=== PATIENT | male | born 1950 | race Caucasian/White ===

== ENCOUNTER → 2016-05-07 | Outpatient (CLI) | payer BC ==
[2016-05-07 07:57] LABS: ALT 34 U/L (21-72); AST 26 U/L (17-59); Alkaline Phosphatase 82 U/L (38-126); Anion Gap 9 mmol/L; Blood Urea Nitrogen 20 mg/dL (9-20); Carbon Dioxide 27 mmol/L (22-30); Chloride 105 mmol/L (98-107); Cholesterol 136 mg/dL (<200); Glucose 143 mg/dL (74-99); HDL Cholesterol 59 mg/dL (40-60); Non-African American GFR(MDRD) >60 (>60 ml/min/1.73 sqM); Potassium 4.5 mmol/L (3.5-5.1); Sodium 141 mmol/L (137-145); Total Bilirubin 0.5 mg/dL (0.2-1.3); Total Protein 7.1 g/dL (6.3-8.2); Triglycerides 66 mg/dL (<150)
[2016-05-07 11:00] LABS: Hemoglobin A1C 6.5 % (4.2-6.1)
== END | disposition home or self-care (01) ==
LOC: LABWHC1 07:10
PROVIDERS: ATTEND Internal Medicine Endocrinology, Diabetes & Metabolism
DX: E10.65 Type 1 diabetes mellitus with hyperglycemia (principal)
CPT/HCPCS: 36415; 80053; 80061; 82043; 83036

== ENCOUNTER → 2016-11-24 | Outpatient (CLI) | payer BC, MEDICARE ==
[2016-11-24 08:21] LABS: ALT 39 U/L (21-72); AST 27 U/L (17-59); Alkaline Phosphatase 85 U/L (38-126); Anion Gap 8 mmol/L; Blood Urea Nitrogen 15 mg/dL (9-20); Calcium 9.4 mg/dL (8.4-10.2); Carbon Dioxide 28 mmol/L (22-30); Chloride 105 mmol/L (98-107); Cholesterol 130 mg/dL (<200); Glucose 126 mg/dL (74-99); HDL Cholesterol 55 mg/dL (40-60); Non-African American GFR(MDRD) >60 (>60 ml/min/1.73 sqM); Potassium 4.6 mmol/L (3.5-5.1); Sodium 141 mmol/L (137-145); Total Bilirubin 0.4 mg/dL (0.2-1.3); Total Protein 7.3 g/dL (6.3-8.2)
[2016-11-24 11:21] LABS: Urine Creatinine 59.5 mg/dL
== END | disposition home or self-care (01) ==
LOC: LABWHC1 07:16
PROVIDERS: ATTEND Internal Medicine Endocrinology, Diabetes & Metabolism
DX: E10.65 Type 1 diabetes mellitus with hyperglycemia (principal)
CPT/HCPCS: 36415; 80053; 80061; 82043; 82570

== ENCOUNTER → 2017-06-28 | Outpatient (CLI) | payer MEDICARE ==
[2017-06-28 08:09] LABS: ALT 31 U/L (21-72); AST 30 U/L (17-59); Albumin 3.9 g/dL (3.5-5.0); Alkaline Phosphatase 84 U/L (38-126); Anion Gap 12 mmol/L; Blood Urea Nitrogen 18 mg/dL (9-20); Calcium 9.2 mg/dL (8.4-10.2); Carbon Dioxide 26 mmol/L (22-30); Chloride 105 mmol/L (98-107); Cholesterol 140 mg/dL (<200); Glucose 103 mg/dL (74-99); HDL Cholesterol 56 mg/dL (40-60); LDL Cholesterol,Calculated 72 mg/dL (0-99); Potassium 4.2 mmol/L (3.5-5.1); Sodium 143 mmol/L (137-145); Total Bilirubin 0.4 mg/dL (0.2-1.3); Total Protein 6.9 g/dL (6.3-8.2); Triglycerides 61 mg/dL (<150)
[2017-06-28 18:55] LABS: Hemoglobin A1C 6.9 % (4.0-6.0)
== END | disposition home or self-care (01) ==
LOC: LABWHC1 07:14
PROVIDERS: ATTEND Internal Medicine Endocrinology, Diabetes & Metabolism
DX: E10.65 Type 1 diabetes mellitus with hyperglycemia (principal); E78.5 Hyperlipidemia, unspecified
CPT/HCPCS: 36415; 80053; 80061; 82043; 82570; 83036; 84443

== ENCOUNTER → 2017-10-10 | Outpatient (CLI) | payer MEDICARE | END | disposition home or self-care (01) | LOC: LABWHC1 06:56 | PROVIDERS: ATTEND Internal Medicine Endocrinology, Diabetes & Metabolism | DX: E10.65 Type 1 diabetes mellitus with hyperglycemia (principal) | CPT/HCPCS: 36415; 82947; 84681 ==

== ENCOUNTER → 2018-01-26 | Outpatient (CLI) | payer MEDICARE ==
[2018-01-26 17:17] LABS: Albumin/Globulin Ratio 1.9 (1.20-2.10); Anion Gap 5.8 mmol/L (4.00-12.00); Carbon Dioxide 26.2 mmol/L (21.6-31.8); Globulin 2.1 g/dL (2.1-3.7); LDL Cholesterol,Calculated 63.6 mg/dL (0.0-131.0); Potassium 4.3 mmol/L (3.5-5.5); Total Bilirubin 0.5 mg/dL (0.3-1.2); Total Protein 6.1 g/dL (6.2-8.2); VLDL Calculation 12.4 mg/dL (5.00-40.00)
[2018-01-26 19:50] LABS: Hemoglobin A1C 7.2 % (4.0-6.0)
== END | disposition home or self-care (01) ==
LOC: LABWHC1 06:42
PROVIDERS: ATTEND Internal Medicine Endocrinology, Diabetes & Metabolism
DX: E10.65 Type 1 diabetes mellitus with hyperglycemia (principal)
CPT/HCPCS: 36415; 80053; 80061; 82043; 82570; 83036; 84443

== ENCOUNTER → 2018-09-14 | Outpatient (CLI) | payer MEDICARE ==
[2018-09-14 11:10] LABS: African American GFR (CKD) 80.6 (60.0-200.0); Albumin 4.1 g/dL (3.80-4.90); Albumin/Globulin Ratio 2.05 (1.60-3.17); Anion Gap 6.9 mmol/L (4.00-12.00); BUN/Creat Ratio 19.09 Ratio (12.00-20.00); Calcium 9.2 mg/dL (8.7-10.3); Carbon Dioxide 25.1 mmol/L (21.6-31.8); Potassium 4.4 mmol/L (3.5-5.5); Total Bilirubin 0.4 mg/dL (0.2-1.2); Total Protein 6.1 g/dL (6.2-8.2)
[2018-09-14 13:19] LABS: Hemoglobin A1C 7.3 % (4.0-6.0)
== END ==
LOC: LABWHC1 06:49
PROVIDERS: ATTEND Internal Medicine Endocrinology, Diabetes & Metabolism
DX: E10.65 Type 1 diabetes mellitus with hyperglycemia (principal)
CPT/HCPCS: 36415; 80053; 80061; 82043; 82570; 83036; 84443

== ENCOUNTER → 2019-04-10 | Outpatient (CLI) | payer MEDICARE ==
[2019-04-10 13:13] LABS: African American GFR (CKD) 80.6 (60.0-200.0); Albumin 4.1 g/dL (3.80-4.90); Albumin/Globulin Ratio 2.05 (1.60-3.17); Anion Gap 6.3 mmol/L (4.00-12.00); BUN/Creat Ratio 16.36 Ratio (12.00-20.00); Calcium 8.9 mg/dL (8.7-10.3); Carbon Dioxide 26.7 mmol/L (21.6-31.8); Chol/HDL Ratio 2.41; LDL Cholesterol,Calculated 69.8 mg/dL (0.0-131.0); Non-African American GFR(CKD) 69.6 (60.0-200.0); Potassium 4.5 mmol/L (3.5-5.5); Total Bilirubin 0.5 mg/dL (0.3-1.2); Total Protein 6.1 g/dL (6.2-8.2); VLDL Calculation 12.2 mg/dL (5.00-40.00)
[2019-04-10 14:34] LABS: Hemoglobin A1C 7.9 % (4.0-6.0)
[2019-04-10 17:12] LABS: Urine Creatinine 56.2 mg/dL
== END | disposition home or self-care (01) ==
LOC: LABWHC1 06:45
PROVIDERS: ATTEND Internal Medicine Endocrinology, Diabetes & Metabolism
DX: E10.65 Type 1 diabetes mellitus with hyperglycemia (principal)
CPT/HCPCS: 36415; 80053; 80061; 82043; 82570; 83036; 84443

== ENCOUNTER 2019-08-29 07:09 | Day surgery (SDC) | payer MEDICARE ==
[2019-08-27 11:16] VITALS: BMI 29.9
[~2019-08-29 07:09] MED LIST: SODIUM CHLORIDE 0.9% 1,000 ML IV SCH
[2019-08-29 07:39] VITALS: BP 180/84; PULSE 69; RESP 16; TEMP 98.4
[2019-08-29 07:42] LABS: Glucose,Whole Blood 226 mg/dL (75-99)
--- NOTE | 2019-08-29 10:39 | P.PCN ---
Preoperative Diagnosis: Diagnosis Recurrent presyncope Twelve-lead ECG Twelve-lead ECG shows sinus rhythm normal [place] narrow QRS normal ST segments left axis deviation Tilt table test per protocol Baseline blood pressure 160/72 mmHg Baseline heart rate 58 beats a minute Patient tilted upright at an angle of 70 per protocol his heart rate and blood pressure remained stable almost a 36 minutes. Thereafter there was a sudden drop in blood pressure without any significant change in heart rate. Patient felt faint, cold and clammy and then passed out momentarily When he was laid supine his blood pressure normalized and his mentation normalized Impression Twelve-lead ECG with left axis deviation, normal cardiac intervals Neurocardiogenic response to upright tilting
== END 2019-08-29 09:25 | disposition home or self-care (01) ==
LOC: CATHEP 07:09
PROVIDERS: ATTEND Internal Medicine Clinical Cardiac Electrophysiology
DX: R55 Syncope and collapse (principal); I95.9 Hypotension, unspecified; E11.9 Type 2 diabetes mellitus without complications; Z96.41 Presence of insulin pump (external) (internal); J44.9 Chronic obstructive pulmonary disease, unspecified; I10 Essential (primary) hypertension; I25.10 Atherosclerotic heart disease of native coronary artery without angina pectoris; M19.90 Unspecified osteoarthritis, unspecified site; E78.5 Hyperlipidemia, unspecified; E11.319 Type 2 diabetes mellitus with unspecified diabetic retinopathy without macular edema; Z95.1 Presence of aortocoronary bypass graft; Z98.890 Other specified postprocedural states; Z87.891 Personal history of nicotine dependence; Z83.3 Family history of diabetes mellitus; Z82.49 Family history of ischemic heart disease and other diseases of the circulatory system; Z79.4 Long term (current) use of insulin; Z79.51 Long term (current) use of inhaled steroids; Z79.899 Other long term (current) drug therapy
CPT/HCPCS: 93005; 93660

== ENCOUNTER → 2019-10-30 | Outpatient (CLI) | payer MEDICARE ==
[2019-10-30 15:02] LABS: African American GFR (CKD) 80.1 (60.0-200.0); Albumin 3.9 g/dL (3.80-4.90); Albumin/Globulin Ratio 1.77 (1.60-3.17); Anion Gap 8.2 mmol/L (4.00-12.00); BUN/Creat Ratio 13.64 Ratio (12.00-20.00); Carbon Dioxide 24.8 mmol/L (21.6-31.8); Chol/HDL Ratio 2.49; Globulin 2.2 g/dL (1.6-3.3); LDL Cholesterol,Calculated 62.2 mg/dL (0.0-131.0); Non-African American GFR(CKD) 69.1 (60.0-200.0); Potassium 4.1 mmol/L (3.5-5.5); Total Bilirubin 0.5 mg/dL (0.2-1.2); Total Protein 6.1 g/dL (6.2-8.2); VLDL Calculation 10.8 mg/dL (5.00-40.00)
[2019-10-30 16:03] LABS: Hemoglobin A1C 6.9 % (4.0-6.0)
[2019-10-30 19:07] LABS: Urine Creatinine 63.8 mg/dL
== END | disposition home or self-care (01) ==
LOC: LABWHC1 06:59
PROVIDERS: ATTEND Internal Medicine Endocrinology, Diabetes & Metabolism
DX: E10.65 Type 1 diabetes mellitus with hyperglycemia (principal)
CPT/HCPCS: 36415; 80053; 80061; 82043; 82570; 83036; 84443

== ENCOUNTER → 2020-02-27 | Outpatient (CLI) | payer MEDICARE ==
[2020-02-27 11:11] LABS: African American GFR (CKD) 80.1 (60.0-200.0); Albumin 4.1 g/dL (3.80-4.90); Albumin/Globulin Ratio 1.95 (1.60-3.17); Anion Gap 7.8 mmol/L (4.00-12.00); BUN/Creat Ratio 16.36 Ratio (12.00-20.00); Calcium 9.2 mg/dL (8.7-10.3); Carbon Dioxide 28.2 mmol/L (21.6-31.8); Chol/HDL Ratio 2.53; Globulin 2.1 g/dL (1.6-3.3); LDL Cholesterol,Calculated 63.2 mg/dL (0.0-131.0); Non-African American GFR(CKD) 69.1 (60.0-200.0); Potassium 4.2 mmol/L (3.5-5.5); Total Bilirubin 0.5 mg/dL (0.3-1.2); Total Protein 6.2 g/dL (6.2-8.2); VLDL Calculation 11.8 mg/dL (5.00-40.00)
[2020-02-27 14:46] LABS: Hemoglobin A1C 7.1 % (4.0-6.0)
[2020-02-27 19:15] LABS: Urine Creatinine 58.2 mg/dL
== END | disposition home or self-care (01) ==
LOC: LABWHC1 07:07
PROVIDERS: ATTEND Internal Medicine Endocrinology, Diabetes & Metabolism
DX: E10.65 Type 1 diabetes mellitus with hyperglycemia (principal)
CPT/HCPCS: 36415; 80053; 80061; 82043; 82570; 83036; 84443

== ENCOUNTER 2020-04-14 07:21 | Day surgery (SDC) | payer MEDICARE ==
[2020-04-13 08:50] VITALS: BMI 29.3
[~2020-04-14 07:21] MED LIST changes: +LACTATED RINGERS 1,000 ML IV SCH; +LIDOCAINE 1% (10MG/ML) FOR IV START INTRADERMA PRN; -SODIUM CHLORIDE 0.9% 1,000 ML IV SCH
[2020-04-14 07:58] LABS: Glucose,Whole Blood 153 mg/dL (75-99)
[2020-04-14 07:59] VITALS: TEMP 97.9
[2020-04-14] MEDS ORDERED: PROPOFOL 10 MG/ML 20 ML VIAL IV ONE (08:28)
--- NOTE | 2020-04-14 08:30 | P.GSHP ---
History of Present Illness H&P Date: 04/14/20 Chief Complaint: Change in bowel habits Patient today for colonoscopy. Describes worsening constipation. Family history of colon cancer in his mother. Personal history of colon polyps unknown type. Past Medical History Past Medical History: Coronary Artery Disease (CAD), Diabetes Mellitus, GERD/Reflux, Hyperlipidemia, Hypertension, Osteoarthritis (OA), Seizure Disorder Additional Past Medical History / Comment(s): see Dr Hoffman H&P. Dizzyness, seizure x1 30 years ago none since took dilantin for [address] TOOK HIM OFF MEDICINE. DM-INSULIN PUMP. PANCREATITIS 01-02-13 History of Any Multi-Drug Resistant Organisms: None Reported Past Surgical History: Coronary Bypass/CABG, Heart Catheterization, Joint Replacement Additional Past Surgical History / Comment(s): 02/17/14 TOTAL R KNEE ARTHROPLASTY, CABG 3 VESSEL 1998, 1996 LT CAROTID ENDARTECTOMY. LASIK EYE SX(LT), (awaiting more eye sx) COLONOSCOPY. Past Anesthesia/Blood Transfusion Reactions: No Reported Reaction Smoking Status: Former smoker - Past Family History Father Family Medical History: COPD, CVA/TIA, Myocardial Infarction ([place]) Additional Family Medical History / Comment(s): FATHER AT AGE 68 YRS OF AN [place]. Sister(s) Family Medical History: Myocardial Infarction ([place]) Mother Family Medical History: COPD, Osteoarthritis (OA) Additional Family Medical History / Comment(s): MOTHER AT AGE 53YRS OF PNEUMONIA. Medications and Allergies Home Medications Medication Instructions Recorded Confirmed Type Aspirin 81 mg PO DAILY 02/12/14 04/13/20 History Atorvastatin Calcium [Lipitor] 20 mg PO DAILY 02/12/14 04/13/20 History Cholecalciferol [Vitamin D3 (25 1,000 unit PO DAILY 02/12/14 04/13/20 History Mcg = 1000 Iu)] Naproxen Sodium 220 mg PO BID PRN 08/27/19 04/13/20 History Omeprazole 20 mg PO DAILY 08/27/19 04/13/20 History Insulin Aspart (For Pump) [NovoLOG 0.01 unit SQ-PUMP CONTINUOUS 04/13/20 04/13/20 History (For Pump)] Losartan [Cozaar] 50 mg PO BID 04/13/20 04/13/20 History Allergies Allergy/AdvReac Type Severity Reaction Status Date / Time No Known Allergies Allergy Verified 04/14/20 08:01 Surgical - Exam Vital Signs Temp Pulse Resp BP Pulse Ox 97.9 F 82 17 104/59 98 04/14/20 07:58 04/14/20 07:58 04/14/20 07:58 04/14/20 07:58 04/14/20 07:58 Physical exam: General: Well-developed, well-nourished HEENT: Normocephalic, sclerae nonicteric Abdomen: Nontender, nondistended Extremities: No edema Neuro: Alert and oriented Results - Labs Abnormal Lab Results - Last 24 Hours (Table) 04/14/20 Range/Units 07:56 POC Glucose (mg/dL) 153 H (75-99) mg/dL Assessment and Plan (1) Change in bowel habits Narrative/Plan: Will proceed with colonoscopy Current Visit: Yes Status: Acute Code(s): R19.4 - CHANGE IN BOWEL HABIT SNOMED Code(s): 158653355
--- NOTE | 2020-04-14 08:46 | P.PCN ---
Date of Procedure: 04/14/20 Procedure(s) Performed: PREOPERATIVE DIAGNOSIS: Change in bowel habits, family history colon cancer in mother POSTOPERATIVE DIAGNOSIS: Diverticulosis, melanosis coli PROCEDURE: Colonoscopy ANESTHESIA: MAC SURGEON: Umer Harris M.D. SPECIMENS: None ENDOSCOPIC PROCEDURE: The patient was placed on the endoscopy table in the left decubitus position. The Olympus colonoscope was inserted into the anus and passed under direct visualization to the base of the cecum. The appendiceal orifice was visualized. From that point the scope was slowly withdrawn inspecting all surfaces carefully. There were no neoplastic inflammatory or polypoid lesions throughout the cecum, ascending, transverse, descending, sigmoid and rectum. There was mild left-sided diverticulosis noted. Patient had melanosis coli throughout the colon. Digital rectal examination was normal. The patient was taken to the recovery room in stable condition per anesthesia guidelines. RECOMMENDATIONS: Resume diet. Follow-up colonoscopy 5 years.
[2020-04-14 08:59] VITALS: RESP 16
[2020-04-14 09:00] LABS: Glucose,Whole Blood 175 mg/dL (75-99)
[2020-04-14 09:09] VITALS: BP 102/68; PULSE 66
== END 2020-04-14 09:33 | disposition home or self-care (01) ==
LOC: ORWHC2ENDO 07:21
PROVIDERS: ATTEND Surgery
DX: K57.30 Diverticulosis of large intestine without perforation or abscess without bleeding (principal); K63.89 Other specified diseases of intestine; Z80.0 Family history of malignant neoplasm of digestive organs; Z86.010 Personal history of colon polyps; I25.10 Atherosclerotic heart disease of native coronary artery without angina pectoris; I10 Essential (primary) hypertension; E11.9 Type 2 diabetes mellitus without complications; Z79.4 Long term (current) use of insulin; Z96.41 Presence of insulin pump (external) (internal); K21.9 Gastro-esophageal reflux disease without esophagitis; E78.5 Hyperlipidemia, unspecified; M19.90 Unspecified osteoarthritis, unspecified site; Z86.69 Personal history of other diseases of the nervous system and sense organs; Z87.19 Personal history of other diseases of the digestive system; Z95.1 Presence of aortocoronary bypass graft; Z96.651 Presence of right artificial knee joint; Z98.890 Other specified postprocedural states; Z87.891 Personal history of nicotine dependence; Z82.3 Family history of stroke; Z82.49 Family history of ischemic heart disease and other diseases of the circulatory system; Z82.61 Family history of arthritis; Z82.5 Family history of asthma and other chronic lower respiratory diseases; Z79.82 Long term (current) use of aspirin; Z79.899 Other long term (current) drug therapy
CPT/HCPCS: 45378; J2704

== ENCOUNTER 2020-04-23 11:16 | Observation (INO) | payer MEDICARE ==
--- NOTE | 2020-04-23 11:35 | ED ---
General Adult HPI - General Chief complaint: Shortness of Breath Stated complaint: OSNIA Time Seen by Provider: 04/23/20 11:23 Source: patient Mode of arrival: wheelchair Limitations: no limitations - History of Present Illness Initial comments: Dictation was produced using [employer] dictation software. please excuse any grammatical, word or spelling errors. This patient was cared for during a federal and state declared state of emergency secondary to Covid 19 Chief Complaint: 69-year-old male with past medical history of coronary artery disease, status post coronary artery bypass, dyslipidemia and hypertension presents with dyspnea for the last 3-4 days. History of Present Illness: Patient is 69-year-old male who presents with exe rtional dyspnea for the last 3 or 4 days. Patient states that he has been having worsening symptoms. He states that it's been progressive. He notices that when he walks around about his house that he becomes a little winded. Patient has any chest pain. He states that last time he did have some episodes of left anterior chest pain that he described as sharp. It does not report any worsening of symptoms with lying flat. States that at rest he feels fine. Denies any leg or calf pain. No history of blood clots. Patient has not taken any and I coagulation medications. Patient reports having had a stress test about a year ago and found to be unremarkable. The ROS documented in this emergency department record has been reviewed and confirmed by me. Those systems with pertinent positive or negative responses have been documented in the HPI. All other systems are other negative and/or noncontributory. PHYSICAL EXAM: General Impression: Alert and oriented x3, not in acute distress HEENT: Normocephalic atraumatic, extra-ocular movements intact, pupils equal and reactive to light bilaterally, mucous membranes moist. Cardiovascular: Heart regular rate and rhythm Chest: Able to complete full sentences, no retractions, no tachypnea, lungs clear to auscultation bilaterally Abdomen: abdomen soft, non-tender, non-distended, no organomegaly Musculoskeletal: Pulses present and equal in all extremities, no peripheral edema Motor: no focal deficits noted Neurological: CN II-XII grossly intact, no focal motor or sensory deficits noted Skin: Intact with no visualized rashes Psych: Normal affect and mood ED course: 69-year-old male with multiple cardiac risk factors presents with exertional dyspnea. Vital signs upon arrival shows blood pressure 195/79 Patient began complaining of dyspnea again. He is at bedside and did appear slightly dyspneic feeling like he wanted to pass out. Repeat EKG shows no dynamic changes. Repeat lung examination shows maybe some mild crackles in his left lung base. Laboratory evaluation is unremarkable. Negative troponin, negative d-dimer, labs are unremarkable.Patient trial a DuoNeb. He is being tested for coronavirus. Coronavirus test is negative. Patient does not feel significant improvement with breathing treatment. Patient will be admitted for cardiac monitoring, serial troponins and cardiology consult. EKG interpretation: Ventricular rate 73, sinus rhythm,. 176, QRS 82, QTC 423. No DE prolongation, no QTC prolongation, no ST or T-wave changes noted. EKG compared to 08/29/2019 showing no changes. Overall, this EKG is unremarkable - Related Data Home Medications Medication Instructions Recorded Confirmed Aspirin 81 mg PO DAILY 02/12/14 04/23/20 Atorvastatin Calcium [Lipitor] 20 mg PO DAILY 02/12/14 04/23/20 Cholecalciferol [Vitamin D3 (25 1,000 unit PO DAILY 02/12/14 04/23/20 Mcg = 1000 Iu)] Naproxen Sodium 220 mg PO DAILY 08/27/19 04/23/20 Omeprazole 20 mg PO DAILY 08/27/19 04/23/20 Insulin Aspart (For Pump) [NovoLOG 0.01 unit SQ-PUMP CONTINUOUS 04/13/20 04/23/20 (For Pump)] Losartan [Cozaar] 50 mg PO BID-W/MEALS 04/13/20 04/23/20 Allergies Allergy/AdvReac Type Severity Reaction Status Date / Time No Known Allergies Allergy Verified 04/23/20 12:13 Review of Systems ROS Statement: Those systems with pertinent positive or pertinent negative responses have been documented in the HPI. ROS Other: All systems not noted in ROS Statement are negative. Past Medical History Past Medical History: Coronary Artery Disease (CAD), COPD, Diabetes Mellitus, GERD/Reflux, Hyperlipidemia, Hypertension, Osteoarthritis (OA), Seizure Disorder Additional Past Medical History / Comment(s): see Dr Dalton Lucas&P. Dizzyness, seizure x1 30 years ago none since took dilantin for 3 years then TOOK HIM OFF MEDICINE. DM-INSULIN PUMP. PANCREATITIS 01-02-13 History of Any Multi-Drug Resistant Organisms: None Reported Past Surgical History: Coronary Bypass/CABG, Heart Catheterization, Joint Replacement Additional Past Surgical History / Comment(s): 02/17/14 TOTAL R KNEE ARTHROPLASTY, CABG 3 VESSEL 1998, 1996 LT CAROTID ENDARTECTOMY. LASIK EYE SX(LT), (awaiting more eye sx) COLONOSCOPY. Past Anesthesia/Blood Transfusion Reactions: No Reported Reaction Past Psychological History: No Psychological Hx Reported Smoking Status: Former smoker Past Alcohol Use History: None Reported Past Drug Use History: None Reported - Past Family History Father Family Medical History: COPD, CVA/TIA, Myocardial Infarction ([place]) Additional Family Medical History / Comment(s): FATHER AT AGE 68 YRS OF AN [place]. Sister(s) Family Medical History: Myocardial Infarction ([place]) Mother Family Medical History: COPD, Osteoarthritis (OA) Additional Family Medical History / Comment(s): MOTHER AT AGE 53YRS OF PNEUMONIA. General Exam Limitations: no limitations Course Vital Signs 04/23/20 04/23/20 04/23/20 11:17 11:32 12:21 Temperature 98.6 F Pulse Rate 75 79 Respiratory 18 20 18 Rate Blood Pressure 195/79 163/81 O2 Sat by Pulse 100 95 Oximetry 04/23/20 04/23/20 04/23/20 13:00 13:22 13:31 Temperature Pulse Rate 79 75 75 Respiratory 18 Rate Blood Pressure 143/87 O2 Sat by Pulse 95 Oximetry Medical Decision Making - Lab Data Result diagrams: 04/23/20 11:43 04/23/20 11:43 Lab Results 04/23/20 04/23/20 04/23/20 Range/Units 11:32 11:37 11:43 WBC 3.9 (3.8-10.6) k/uL RBC 5.05 (4.30-5.90) m/uL Hgb 15.2 (13.0-17.5) gm/dL Hct 45.6 (39.0-53.0) % MCV 90.3 (80.0-100.0) fL MCH 30.2 (25.0-35.0) pg MCHC 33.4 (31.0-37.0) g/dL RDW 13.0 (11.5-15.5) % Plt Count 198 (150-450) k/uL MPV 7.1 Neutrophils % 68 % Lymphocytes % 22 % Monocytes % 7 % Eosinophils % 1 % Basophils % 1 % Neutrophils # 2.6 (1.3-7.7) k/uL Lymphocytes # 0.8 L (1.0-4.8) k/uL Monocytes # 0.3 (0-1.0) k/uL Eosinophils # 0.0 (0-0.7) k/uL Basophils # 0.0 (0-0.2) k/uL PT (9.0-12.0) sec INR (<1.2) APTT (22.0-30.0) sec D-Dimer (<0.60) mg/L FEU Sodium (137-145) mmol/L Potassium (3.5-5.1) mmol/L Chloride (98-107) mmol/L Carbon Dioxide (22-30) mmol/L Anion Gap mmol/L BUN (9-20) mg/dL Creatinine (0.66-1.25) mg/dL Est GFR (CKD-EPI)AfAm (>60 ml/min/1.73 sqM) Est GFR (CKD-EPI)NonAf (>60 ml/min/1.73 sqM) Glucose (74-99) mg/dL POC Glucose (mg/dL) 176 H (75-99) mg/dL POC Glu Research Fellow ID Megan Sin Calcium (8.4-10.2) mg/dL Magnesium (1.6-2.3) mg/dL Total Bilirubin (0.2-1.3) mg/dL AST (17-59) U/L ALT (4-49) U/L Alkaline Phosphatase (38-126) U/L Troponin I (0.000-0.034) ng/mL NT-Pro-B Natriuret Pep 156 pg/mL Total Protein (6.3-8.2) g/dL Albumin (3.5-5.0) g/dL Lipase (23-300) U/L Coronavirus (PCR) (Not Detectd) 04/23/20 04/23/20 04/23/20 Range/Units 11:43 11:43 11:43 WBC (3.8-10.6) k/uL RBC (4.30-5.90) m/uL Hgb (13.0-17.5) gm/dL Hct (39.0-53.0) % MCV (80.0-100.0) fL MCH (25.0-35.0) pg MCHC (31.0-37.0) g/dL RDW (11.5-15.5) % Plt Count (150-450) k/uL MPV Neutrophils % % Lymphocytes % % Monocytes % % Eosinophils % % Basophils % % Neutrophils # (1.3-7.7) k/uL Lymphocytes # (1.0-4.8) k/uL Monocytes # (0-1.0) k/uL Eosinophils # (0-0.7) k/uL Basophils # (0-0.2) k/uL PT 10.4 (9.0-12.0) sec INR 1.0 (<1.2) APTT 22.5 (22.0-30.0) sec D-Dimer 0.54 (<0.60) mg/L FEU Sodium 134 L (137-145) mmol/L Potassium 4.3 (3.5-5.1) mmol/L Chloride 98 (98-107) mmol/L Carbon Dioxide 26 (22-30) mmol/L Anion Gap 10 mmol/L BUN 18 (9-20) mg/dL Creatinine 0.98 (0.66-1.25) mg/dL Est GFR (CKD-EPI)AfAm >90 (>60 ml/min/1.73 sqM) Est GFR (CKD-EPI)NonAf 80 (>60 ml/min/1.73 sqM) Glucose 182 H (74-99) mg/dL POC Glucose (mg/dL) (75-99) mg/dL POC Glu Research Fellow ID Calcium 10.2 (8.4-10.2) mg/dL Magnesium 1.7 (1.6-2.3) mg/dL Total Bilirubin 0.6 (0.2-1.3) mg/dL AST 28 (17-59) U/L ALT 25 (4-49) U/L Alkaline Phosphatase 86 (38-126) U/L Troponin I <0.012 (0.000-0.034) ng/mL NT-Pro-B Natriuret Pep pg/mL Total Protein 7.4 (6.3-8.2) g/dL Albumin 4.4 (3.5-5.0) g/dL Lipase 29 (23-300) U/L Coronavirus (PCR) (Not Detectd) 04/23/20 Range/Units 13:22 WBC (3.8-10.6) k/uL RBC (4.30-5.90) m/uL Hgb (13.0-17.5) gm/dL Hct (39.0-53.0) % MCV (80.0-100.0) fL MCH (25.0-35.0) pg MCHC (31.0-37.0) g/dL RDW (11.5-15.5) % Plt Count (150-450) k/uL MPV Neutrophils % % Lymphocytes % % Monocytes % % Eosinophils % % Basophils % % Neutrophils # (1.3-7.7) k/uL Lymphocytes # (1.0-4.8) k/uL Monocytes # (0-1.0) k/uL Eosinophils # (0-0.7) k/uL Basophils # (0-0.2) k/uL PT (9.0-12.0) sec INR (<1.2) APTT (22.0-30.0) sec D-Dimer (<0.60) mg/L FEU Sodium (137-145) mmol/L Potassium (3.5-5.1) mmol/L Chloride (98-107) mmol/L Carbon Dioxide (22-30) mmol/L Anion Gap mmol/L BUN (9-20) mg/dL Creatinine (0.66-1.25) mg/dL Est GFR (CKD-EPI)AfAm (>60 ml/min/1.73 sqM) Est GFR (CKD-EPI)NonAf (>60 ml/min/1.73 sqM) Glucose (74-99) mg/dL POC Glucose (mg/dL) (75-99) mg/dL POC Glu Research Fellow ID Calcium (8.4-10.2) mg/dL Magnesium (1.6-2.3) mg/dL Total Bilirubin (0.2-1.3) mg/dL AST (17-59) U/L ALT (4-49) U/L Alkaline Phosphatase (38-126) U/L Troponin I (0.000-0.034) ng/mL NT-Pro-B Natriuret Pep pg/mL Total Protein (6.3-8.2) g/dL Albumin (3.5-5.0) g/dL Lipase (23-300) U/L Coronavirus (PCR) Not Detected (Not Detectd) Disposition Clinical Impression: ACS (acute coronary syndrome) Disposition: ADMITTED IP TO THIS HOSP Condition: Fair Referrals: Valdemar Jimenez MD [Primary Care Provider] - 1-2 days Decision Time: 14:24
[2020-04-23 11:40] LABS: Glucose,Whole Blood 176 mg/dL (75-99)
[2020-04-23 12:06] LABS: Basophils % (A) 1 %; Eosinophils % (A) 1 %; HCT 45.6 % (39.0-53.0); HGB 15.2 gm/dL (13.0-17.5); Lymphocytes # (A) 0.8 k/uL (1.0-4.8); Lymphocytes % (A) 22 %; MCH 30.2 pg (25.0-35.0); MCHC 33.4 g/dL (31.0-37.0); MCV 90.3 fL (80.0-100.0); Mean Platelet Volume 7.1; Monocytes # (A) 0.3 k/uL (0-1.0); Monocytes % (A) 7 %; Neutrophils # (A) 2.6 k/uL (1.3-7.7); Neutrophils % (A) 68 %; Platelet Count 198 k/uL (150-450); RBC 5.05 m/uL (4.30-5.90); WBC 3.9 k/uL (3.8-10.6)
[2020-04-23 12:07] LABS: ALT 25 U/L (4-49); AST 28 U/L (17-59); African American GFR (CKD) >90 (>60 ml/min/1.73 sqM); Albumin 4.4 g/dL (3.5-5.0); Alkaline Phosphatase 86 U/L (38-126); Anion Gap 10 mmol/L; Blood Urea Nitrogen 18 mg/dL (9-20); Calcium 10.2 mg/dL (8.4-10.2); Carbon Dioxide 26 mmol/L (22-30); Chloride 98 mmol/L (98-107); Glucose 182 mg/dL (74-99); Lipase 29 U/L (23-300); Magnesium 1.7 mg/dL (1.6-2.3); Non-African American GFR(CKD) 80 (>60 ml/min/1.73 sqM); Potassium 4.3 mmol/L (3.5-5.1); Sodium 134 mmol/L (137-145); Total Bilirubin 0.6 mg/dL (0.2-1.3); Total Protein 7.4 g/dL (6.3-8.2)
--- NOTE | 2020-04-23 12:14 | XR ---
EXAMINATION TYPE: XR chest 2V DATE OF EXAM: 04/23/2020 COMPARISON: Chest x-ray and CT chest October 30, 2012 HISTORY: Chest pain and diaphoresis. TECHNIQUE: Frontal and lateral views of the chest are obtained. FINDINGS: There is mild bilateral chronic emphysematous and mild pulmonary fibrotic change without s uspicious new focal air space opacity, pleural effusion, or pneumothorax seen. The cardiac silhouett e size remains within normal limits. Multilevel spurring in the thoracic spine. IMPRESSION: Chronic changes without acute pulmonary process. No significant change from prior.
[2020-04-23 12:27] LABS: D-Dimer 0.54 mg/L FEU (<0.60); Partial Thromboplastin Time 22.5 sec (22.0-30.0); Prothrombin Time 10.4 sec (9.0-12.0)
[2020-04-23] MEDS ORDERED: IPRATROPIUM-ALBUTEROL 3 ML NEB INHALATION STA (12:53)
[2020-04-23] MEDS ORDERED: NITROGLYCERIN SL TABS 0.4 MG TAB SUBLINGUAL PRN (14:19)
[2020-04-23] MEDS ORDERED: ASPIRIN 81 MG PO STA (14:19)
[2020-04-23 17:46] LABS: Glucose,Whole Blood 194 mg/dL (75-99)
[2020-04-23] MEDS ORDERED: Insulin Aspart (For Pump) 100 UNIT/ML VIAL SQ-PUMP SCH (18:45)
[2020-04-23 20:10] LABS: Glucose,Whole Blood 205 mg/dL (75-99)
[2020-04-23] MEDS: LOSARTAN 50 MG TAB PO SCH (20:14)
[2020-04-24 03:03] VITALS: RESP 16
[2020-04-24 03:55] LABS: Cholesterol 156 mg/dL (<200); HDL Cholesterol 58 mg/dL (40-60); LDL Cholesterol,Calculated 86 mg/dL (0-99); Triglycerides 62 mg/dL (<150)
[2020-04-24 07:30] LABS: Glucose,Whole Blood 130 mg/dL (75-99)
[2020-04-24] MEDS ORDERED: PANTOPRAZOLE 40 MG TABLET PO SCH (07:30)
[2020-04-24] MEDS ORDERED: LOSARTAN 50 MG TAB PO SCH (07:30)
[2020-04-24 08:24] VITALS: TEMP 98.1
[2020-04-24] MEDS: LOSARTAN 50 MG TAB PO SCH (08:33)
[2020-04-24] MEDS ORDERED: ASPIRIN 81 MG PO SCH (09:00)
[2020-04-24] MEDS ORDERED: ASPIRIN 325 MG TAB PO SCH (09:00)
[2020-04-24] MEDS ORDERED: ATORVASTATIN 20 MG TAB PO SCH (09:00)
[2020-04-24 09:46] VITALS: PULSE 64
--- NOTE | 2020-04-24 10:01 | ECHOF ---
Referral Reason:SOB MEASUREMENTS -------- HEIGHT: 190.5 cm WEIGHT: 106.6 kg BP: 136/56 RVIDd: 3.4 cm (< 3.3) IVSd: 1.4 cm (0.6 - 1.1) LVIDd: 4.7 cm (3.9 - 5.3) LVPWd: 1.4 cm (0.6 - 1.1) IVSs: 1.9 cm LVIDs: 2.9 cm LVPWs: 1.7 cm LA Diam: 3.8 cm (2.7 - 3.8) LAESV Index (A-L): 36.27 ml/m Ao Diam: 4.0 cm (2.0 - 3.7) AV Cusp: 1.7 cm (1.5 - 2.6) LA Diam: 3.9 cm (2.7 - 3.8) MV EXCURSION: 19.436 mm (> 18.000) MV EF SLOPE: 56 mm/s (70 - 150) EPSS: 0.3 cm MV E Joel: 1.12 m/s MV DecT: 140 ms MV A Joel: 0.75 m/s MV E/A Ratio: 1.50 RAP: 5.00 mmHg RVSP: 35.45 mmHg FINDINGS -------- Sinus rhythm. This was a technically adequate study. The left ventricular size is normal. There is moderate concentric left ventricular hypertrophy. O verall left ventricular systolic function is normal with, an EF between 55 - 60 %. The right ventricle is mildly enlarged. The left atrium is normal in size. The right atrium is normal in size. Interatrial and interventricular septum intact. There is mild aortic valve sclerosis. The mitral valve is normal. Mild tricuspid regurgitation present. There is mild pulmonary hypertension. The right ventricular systolic pressure, as measured by Doppler, is 35.45mmHg. Trace/mild (physiologic) pulmonic regurgitation. The aortic root is dilated measuring 4.0cm. Normal inferior vena cava with normal inspiratory collapse consistent with estimated right atrial pre ssure of 5 mmHg. There is no pericardial effusion. CONCLUSIONS -------- 1. The left ventricular size is normal. 2. There is moderate concentric left ventricular hypertrophy. 3. Overall left ventricular systolic function is normal with, an EF between 55 - 60 %. 4. The right ventricle is mildly enlarged. 5. There is mild aortic valve sclerosis. 6. Mild tricuspid regurgitation present. 7. There is mild pulmonary hypertension. 8. The right ventricular systolic pressure, as measured by Doppler, is 35.45mmHg. 9. Trace/mild (physiologic) pulmonic regurgitation. 10. The aortic root is dilated measuring 4.0cm. 11. There is no pericardial effusion. SONG LYRICIST: Lindsey Porras RDCS
--- NOTE | 2020-04-24 11:04 | P.CRDCN ---
History of Present Illness Consult date: 04/24/20 History of present illness: This is a 69-year-old gentleman with history of coronary artery disease with a previous bypass surgery done several years ago, dyslipidemia and hypertension who follows with Dr. Singh. Patient essentially came to the hospital with complaints of dizziness when she stands up associates some shortness of breath. He claims that if he stands for a few seconds, the symptoms will resolve. Subsequently general physical activity without any shortness of breath. No complaints of chest pain. No orthopnea. Paxman after dyspnea. No palpitation s. His EKG showed sinus rhythm with occasional PVCs. Cardiac enzymes are negative. Lungs are clear. Heart is regular. He is documented to have significant postural hypotension with resting hypertension. This point we'll going to use knee-high stockings. And also start him on small dose of mid odrine. Echocardiogram will be done. Further examination depend upon clinical course Review of Systems As per the chart Past Medical History Past Medical History: Coronary Artery Disease (CAD), COPD, Diabetes Mellitus, Eye Disorder, GERD/Reflux, Hyperlipidemia, Hypertension, Osteoarthritis (OA), Seizure Disorder, Vascular Disorder Additional Past Medical History / Comment(s): IDDM type II on insulin pump, neuropathy bilateral feet, past R eye retinal bleeds with surgery, pancreatitis years ago, arthritis bilateral feet/toes cross, vertigo when first stands, seizure over 30 yrs ago/was on medication couple years then taken off, pt has had L caratid endartectomy. History of Any Multi-Drug Resistant Organisms: None Reported Past Surgical History: Coronary Bypass/CABG, Heart Catheterization, Joint Replacement Additional Past Surgical History / Comment(s): 2000 CABG 3 vessel, tilt table test, 1996 L caratid endartectomy, colonoscopies, total R knee arthroplasty, R lasik eye surgery for retinal bleed. Past Anesthesia/Blood Transfusion Reactions: No Reported Reaction Smoking Status: Former smoker - Past Family History Father Family Medical History: COPD, CVA/TIA, Myocardial Infarction (MD) Additional Family Medical History / Comment(s): FATHER AT AGE 68 YRS OF AN MD. Sister(s) Family Medical History: Myocardial Infarction (MD) Mother Family Medical History: COPD, Osteoarthritis (OA), Pneumonia Additional Family Medical History / Comment(s): MOTHER AT AGE 53YRS OF PNEUMONIA. Medications and Allergies Home Medications Medication Instructions Recorded Confirmed Type Aspirin 81 mg PO DAILY 02/12/14 04/23/20 History Atorvastatin Calcium [Lipitor] 20 mg PO DAILY 02/12/14 04/23/20 History Cholecalciferol [Vitamin D3 (25 1,000 unit PO DAILY 02/12/14 04/23/20 History Mcg = 1000 Iu)] Naproxen Sodium 220 mg PO DAILY 08/27/19 04/23/20 History Omeprazole 20 mg PO DAILY 08/27/19 04/23/20 History Insulin Aspart (For Pump) [NovoLOG 0.01 unit SQ-PUMP CONTINUOUS 04/13/20 04/23/20 History (For Pump)] Losartan [Cozaar] 50 mg PO BID-W/MEALS 04/13/20 04/23/20 History Allergies Allergy/AdvReac Type Severity Reaction Status Date / Time No Known Allergies Allergy Verified 04/23/20 12:13 Physical Exam Vitals: Vital Signs Temp Pulse Pulse Pulse Pulse Pulse Resp 04/24/20 09:41 65 78 64 04/24/20 08:00 98.1 F 61 16 04/24/20 02:00 97.5 F L 54 L 16 04/23/20 20:00 97.5 F L 67 18 04/23/20 15:46 71 76 74 04/23/20 15:29 98.0 F 83 16 04/23/20 14:59 98.6 F 75 18 04/23/20 13:31 75 04/23/20 13:22 75 04/23/20 13:00 79 18 04/23/20 12:21 79 18 04/23/20 11:32 20 04/23/20 11:17 98.6 F 75 18 BP BP BP BP BP Pulse Ox 04/24/20 09:41 149/77 123/73 166/76 04/24/20 08:00 159/75 97 04/24/20 02:00 136/56 98 04/23/20 20:00 166/73 98 04/23/20 15:46 160/72 103/69 172/79 04/23/20 15:29 168/73 99 04/23/20 14:59 164/75 95 04/23/20 13:31 04/23/20 13:22 04/23/20 13:00 143/87 95 04/23/20 12:21 163/81 95 04/23/20 11:32 04/23/20 11:17 195/79 100 Intake and Output 04/23/20 04/24/20 04/24/20 22:59 06:59 14:59 Intake Total 720 Balance 720 Intake: Oral 720 Other: Voiding Method Toilet # Voids 2 3 Weight 106.594 kg GENERAL EXAM: Patient is alert and oriented and doesn't appear to be in any acute distress HEENT: Normocephalic. Normal reaction of pupils, equal size, normal range of extraocular motion. No erythema or exudates in the throat. NECK: No masses, no nuchal rigidity. CHEST: No chest wall deformity. Previous open hearts scar LUNGS: Equal air entry with no crackles or wheeze. HEART: S1 and S2 normal with no audible mumurs or gallops. Regular rhythm, femorals equal on both sides.. ABDOMEN: No hepatosplenomegaly, normal bowel sounds, no guarding or rigidity. SKIN: No rashes CENTRAL NERVOUS SYSTEM: No focal deficits. EXTREMITIES: No cyanosis, clubbing or edema. Results 04/23/20 11:43 04/23/20 11:43 Cardiac Enzymes 04/23/20 04/23/20 04/23/20 Range/Units 11:43 11:43 15:46 AST 28 (17-59) U/L Troponin I <0.012 <0.012 (0.000-0.034) ng/mL 04/23/20 Range/Units 17:44 AST (17-59) U/L Troponin I <0.012 (0.000-0.034) ng/mL Coagulation 04/23/20 Range/Units 11:43 PT 10.4 (9.0-12.0) sec APTT 22.5 (22.0-30.0) sec Lipids 04/23/20 Range/Units 11:43 Triglycerides 62 (<150) mg/dL Cholesterol 156 (<200) mg/dL HDL Cholesterol 58 (40-60) mg/dL CBC 04/23/20 Range/Units 11:43 WBC 3.9 (3.8-10.6) k/uL RBC 5.05 (4.30-5.90) m/uL Hgb 15.2 (13.0-17.5) gm/dL Hct 45.6 (39.0-53.0) % Plt Count 198 (150-450) k/uL Comprehensive Metabolic Panel 04/23/20 Range/Units 11:43 Sodium 134 L (137-145) mmol/L Potassium 4.3 (3.5-5.1) mmol/L Chloride 98 (98-107) mmol/L Carbon Dioxide 26 (22-30) mmol/L BUN 18 (9-20) mg/dL Creatinine 0.98 (0.66-1.25) mg/dL Glucose 182 H (74-99) mg/dL Calcium 10.2 (8.4-10.2) mg/dL AST 28 (17-59) U/L ALT 25 (4-49) U/L Alkaline Phosphatase 86 (38-126) U/L Total Protein 7.4 (6.3-8.2) g/dL Albumin 4.4 (3.5-5.0) g/dL Current Medications Generic Name Dose Route Start Last Admin Trade Name Freq PRN Reason Stop Dose Admin Aspirin 81 mg 04/24/20 09:00 04/24/20 08:33 Aspirin 81 Mg PO 81 mg DAILY BELEN Administration Atorvastatin Calcium 20 mg 04/24/20 09:00 04/24/20 08:33 Atorvastatin 20 Mg Tab PO 20 mg DAILY BELEN Administration Insulin Aspart 0.01 unit 04/23/20 18:45 04/24/20 02:44 Insulin Aspart (For Pump) 100 Unit/Ml Vial SQ-PUMP Not Given CONTINUOUS BELEN Losartan Potassium 50 mg 04/23/20 20:07 04/24/20 08:33 Losartan 50 Mg Tab PO 50 mg BID-W/MEALS BELEN Administration Midodrine 2.5 mg 04/24/20 12:30 Midodrine 5 Mg Tab PO AC-TID BELEN Nitroglycerin 0.4 mg 04/23/20 14:19 Nitroglycerin Sl Tabs 0.4 Mg Tab SUBLINGUAL Q5M PRN Chest Pain Pantoprazole Sodium 40 mg 04/24/20 07:30 04/24/20 08:33 Pantoprazole 40 Mg Tablet PO 40 mg AC-BRKFST BELEN Administration Intake and Output 04/23/20 04/24/20 04/24/20 22:59 06:59 14:59 Intake Total 720 Balance 720 Intake: Oral 720 Other: Voiding Method Toilet # Voids 2 3 Weight 106.594 kg 04/23/20 11:43 04/23/20 11:43 EKG Interpretations (text) Sinus rhythm with left axis deviation and nonspecific ST-T changes Assessment and Plan (1) Postural hypotension Current Visit: Yes Status: Acute Code(s): I95.1 - ORTHOSTATIC HYPOTENSION SNOMED Code(s): 48597889 (2) Dyspnea Current Visit: Yes Status: Acute Code(s): R06.00 - DYSPNEA, UNSPECIFIED SNOMED Code(s): 654268886 (3) History of coronary artery bypass graft Current Visit: Yes Status: Acute Code(s): Z95.1 - PRESENCE OF AORTOCORONARY BYPASS GRAFT SNOMED Code(s): 066469573 Plan: I'm going to use knee-high stockings and also Midodrin. If necessary, may stop the ZEUS inhibitor and try calcium channel hugh. We'll get an echocardiogram. Further recommendations depend upon clinical course
[2020-04-24 11:57] LABS: Glucose,Whole Blood 170 mg/dL (75-99)
[2020-04-24] MEDS ORDERED: MIDODRINE 5 MG TAB PO SCH (12:30)
[2020-04-24 15:43] VITALS: BP 149/71
--- NOTE | 2020-04-24 19:06 | HP ---
HISTORY AND PHYSICAL CHIEF COMPLAINT: Diaphoresis. HISTORY OF PRESENT ILLNESS: This is another admission for this 69-year-old white male who has had a longstanding history of insulin-dependent diabetes mellitus, coronary artery disease and COPD. For many years his diabetes was uncontrolled. More recently, he has kept his blood sugars under excellent control via insulin pump. He does have coronary artery disease, but he has been stable and had no problems of late. He noticed some diaphoresis at night 2 days ago. This recurred again and he came to the emergency room. It was associated with some exertional dyspnea during the day, but no angina. He had no palpitations, syncope, nausea, etc. In the emergency room, his troponin was negative as well as a D- dimer and BNP. REVIEW OF SYSTEMS: He has had no other symptoms or signs. He has had no fever, chills, cough, abdominal pain, nausea, vomiting, urinary complaints, etc. Past medical history, family history, and personal and social histories are all otherwise noncontributory at this time. He has had a history of hyperlipidemia as well. He used to smoke, but has quit. CURRENT MEDICATIONS: Current medications include atorvastatin 20 mg at bedtime, omeprazole 20 mg once a day, losartan 50 mg once a day, aspirin 81 mg a day, and his pump. He also takes vitamin D. He has had carotid artery procedures and a triple bypass in the past. PHYSICAL EXAMINATION: Blood pressure 125/68 with a pulse of 73 and regular, respirations of 25, and he is afebrile. In general he appeared to be well developed, well nourished, in no acute distress. Skin color is normal, skin warm and dry. Lymph nodes were not enlarged. Head, ears, eyes, nose, mouth and throat were otherwise normal. Neck veins were not distended. Carotids were normal. The chest was clear to auscultation and percussion. Cardiac exam demonstrated sinus rhythm with no murmurs or extra sounds. Abdomen is soft and nontender without visceromegaly masses. Extremities are normal. Neurologically he is intact. He is admitted to the hospital with diagnoses: 1. Episodes of diaphoresis. 2. Exertional dyspnea. 3. History of coronary artery disease, status post coronary artery bypass grafting. 4. Insulin-dependent diabetes mellitus. 5. Previous history of cigarette smoking. PLAN: 1. Bedrest. 2. IV fluids. 3. Serial EKGs and enzymes. 4. Cardiology consult. SERENE / ELIZABETH: [id number] /
--- NOTE | 2020-04-24 19:48 | DS ---
DISCHARGE SUMMARY CHIEF COMPLAINT: Unexplained diaphoresis and exertional shortness of breath. HISTORY OF PRESENT ILLNESS AND PHYSICAL EXAMINATION: Details of this man's history and physical can be found in the initial workup. LABORATORY STUDIES: While he was in the hospital he had laboratory studies, details of which can be found in the laboratory section of his chart. COURSE IN THE HOSPITAL: After admission he was placed on bedrest and started on intravenous fluids and seen by Cardiology. Echocardiogram was ordered. After their evaluation, it was felt by Cardiology that he could be safely discharged, and he will go home on midodrine. It was their feeling that this may have been related to hypotension. He will go home on his usual activity and diet otherwise and will be seen in followup in several days. FINAL DIAGNOSES: 1. Exertional dyspnea. 2. Unexplained diaphoresis. 3. History of coronary artery disease. 4. Insulin-dependent diabetes mellitus. 5. Chronic obstructive pulmonary disease. OPERATIONS: None. CONSULTATION: Cardiology. He is improved. MMODL / IJN: [id number] /
== END 2020-04-24 15:58 | disposition home or self-care (01) ==
LOC: EC 11:16 → 6NMEDSUR 14:19
PROVIDERS: ADMIT Family Medicine; ATTEND Family Medicine
DX: R06.09 Other forms of dyspnea (principal); R61 Generalized hyperhidrosis; R06.02 Shortness of breath; R07.89 Other chest pain; R42 Dizziness and giddiness; I24.9 Acute ischemic heart disease, unspecified; I25.10 Atherosclerotic heart disease of native coronary artery without angina pectoris; I95.1 Orthostatic hypotension; I49.3 Ventricular premature depolarization; E11.40 Type 2 diabetes mellitus with diabetic neuropathy, unspecified; G62.9 Polyneuropathy, unspecified; M19.072 Primary osteoarthritis, left ankle and foot; M19.071 Primary osteoarthritis, right ankle and foot; E78.5 Hyperlipidemia, unspecified; I10 Essential (primary) hypertension; J44.9 Chronic obstructive pulmonary disease, unspecified; K21.9 Gastro-esophageal reflux disease without esophagitis; G40.909 Epilepsy, unspecified, not intractable, without status epilepticus; Z20.822 Contact with and (suspected) exposure to COVID-19; Z79.82 Long term (current) use of aspirin; Z79.899 Other long term (current) drug therapy; Z79.4 Long term (current) use of insulin; Z79.1 Long term (current) use of non-steroidal anti-inflammatories (NSAID); Z95.1 Presence of aortocoronary bypass graft; Z96.41 Presence of insulin pump (external) (internal); Z87.19 Personal history of other diseases of the digestive system; Z87.891 Personal history of nicotine dependence; Z96.651 Presence of right artificial knee joint; Z82.49 Family history of ischemic heart disease and other diseases of the circulatory system; Z82.5 Family history of asthma and other chronic lower respiratory diseases; Z82.3 Family history of stroke; Z82.61 Family history of arthritis
CPT/HCPCS: 93005 ×2; 99285; 36415; 93306; 85379; 83880; 80061; 80053; 83690; 83735; 84484; 85025; 85610; 85730; 87635; 71046; G0378 ×2

== ENCOUNTER → 2020-05-27 | Outpatient (CLI) | payer MEDICARE ==
[2020-05-28 01:06] LABS: Prolactin 5.2 ng/mL (2.1-17.7)
== END | disposition home or self-care (01) ==
LOC: LABWHC1 12:17
PROVIDERS: ATTEND Internal Medicine Endocrinology, Diabetes & Metabolism
DX: E10.65 Type 1 diabetes mellitus with hyperglycemia (principal); I95.1 Orthostatic hypotension; R53.83 Other fatigue
CPT/HCPCS: 36415; 82024; 82533; 84146; 84403

== ENCOUNTER → 2020-09-17 | Outpatient (CLI) | payer MEDICARE ==
[2020-09-17 13:00] LABS: Urine Creatinine 48.8 mg/dL
[2020-09-17 13:40] LABS: African American GFR (CKD) 89.2 (60.0-200.0); Albumin 3.9 g/dL (3.80-4.90); Albumin/Globulin Ratio 1.77 (1.60-3.17); Anion Gap 4.3 mmol/L (4.00-12.00); Calcium 9.1 mg/dL (8.7-10.3); Carbon Dioxide 26.7 mmol/L (21.6-31.8); Chol/HDL Ratio 2.54; Globulin 2.2 g/dL (1.6-3.3); LDL Cholesterol,Calculated 66.2 mg/dL (0.0-131.0); Potassium 4.2 mmol/L (3.5-5.5); Total Bilirubin 0.5 mg/dL (0.3-1.2); Total Protein 6.1 g/dL (6.2-8.2); VLDL Calculation 10.8 mg/dL (5.00-40.00)
[2020-09-17 17:03] LABS: Hemoglobin A1C 6.9 % (4.0-6.0)
== END | disposition home or self-care (01) ==
LOC: LABWHC1 06:55
PROVIDERS: ATTEND Internal Medicine Endocrinology, Diabetes & Metabolism
DX: E10.65 Type 1 diabetes mellitus with hyperglycemia (principal)
CPT/HCPCS: 36415; 80053; 80061; 82043; 82570; 83036; 84443

== ENCOUNTER → 2021-04-26 | Outpatient (CLI) | payer MEDICARE ==
[2021-04-26 11:40] LABS: Appearance,Urine Clear (Clear); Bilirubin,Urine Negative (Negative); Blood,Urine Negative (Negative); Color,Urine Yellow (Yellow); Ketones,Urine Negative (Negative); Leukocyte Esterase,Urine Negative (Negative); Nitrite,Urine Negative (Negative); Protein,Urine 30 mg/dL (Negative); Specific Gravity,Urine 1.015 (1.001-1.030)
[2021-04-26 11:43] LABS: Bacteria,Urine None Seen /HPF (None Seen); RBC,Urine 0-2 /HPF (0-2,None Seen); WBC,Urine 0-5 /HPF (0-5)
[2021-04-26 11:53] LABS: Basophils # (A) 0.03 X 10*3/uL (0.00-0.10); Basophils % (A) 1.1 %; Eosinophils # (A) 0.08 X 10*3/uL (0.04-0.35); Eosinophils % (A) 2.8 %; HCT 39.3 % (39.6-50.0); Immature Grans, Automated 0 %; Lymphocytes # (A) 0.73 X 10*3/uL (0.90-5.00); Lymphocytes % (A) 25.9 %; MCH 30.7 pg (27.0-32.0); MCHC 33.1 g/dL (32.0-37.0); MCV 92.9 fL (80.0-97.0); Mean Platelet Volume 10.1 fL (9.5-12.2); Monocytes # (A) 0.34 X 10*3/uL (0.20-1.00); Monocytes % (A) 12.1 %; NRBC Per 100 WBC 0 /100 WBCS (0.0-0.0); Neutrophils # (A) 1.64 X 10*3/uL (1.80-7.70); Neutrophils % (A) 58.1 %; Platelet Count 206 X 10*3/uL (140-440); RBC 4.23 X 10*6/uL (4.40-5.60); RDW 12.7 % (11.5-14.5); WBC 2.82 X 10*3/uL (4.50-10.00)
[2021-04-26 12:06] LABS: ALT 27 U/L (10-49); AST 23 U/L (14-35); African American GFR (CKD) 87.1 (60.0-200.0); Albumin/Globulin Ratio 1.76 (1.60-3.17); Alkaline Phosphatase 89 U/L (41-126); Blood Urea Nitrogen 15.3 mg/dL (9.0-27.0); Calcium 9.3 mg/dL (8.7-10.3); Carbon Dioxide 23.9 mmol/L (20.0-27.5); Chloride 103 mmol/L (96-109); Chol/HDL Ratio 2.48 Ratio; Creatine Kinase 188 U/L (35-257); Globulin 2.3 g/dL (1.6-3.3); Glucose 164 mg/dL (70-110); LDL Cholesterol,Calculated 70.9 mg/dL (0.0-131.0); Non-African American GFR(CKD) 75.2 (60.0-200.0); Potassium 4.3 mmol/L (3.5-5.5); Sodium 139 mmol/L (135-145); Total Protein 6.3 g/dL (6.2-8.2); Uric Acid 3.5 mg/dL (3.7-8.7); VLDL Calculation 11.42 mg/dL (5.00-40.00)
== END | disposition home or self-care (01) ==
LOC: LABWHC1 07:01
PROVIDERS: ATTEND Family Medicine
DX: E11.9 Type 2 diabetes mellitus without complications (principal); I25.718 Atherosclerosis of autologous vein coronary artery bypass graft(s) with other forms of angina pectoris; N40.0 Benign prostatic hyperplasia without lower urinary tract symptoms; E78.2 Mixed hyperlipidemia
CPT/HCPCS: 36415; 80053; 80061; 81001; 82043; 82306; 82550; 82570; 82607; 83036; 84153; 84439; 84443; 84550; 85025

== ENCOUNTER → 2021-07-27 | Outpatient (CLI) | payer MEDICARE ==
[2021-07-27 10:40] LABS: HCT 36.9 % (39.6-50.0); MCHC 32.5 g/dL (32.0-37.0); MCV 92.3 fL (80.0-97.0); Mean Platelet Volume 10.1 fL (9.5-12.2); NRBC Per 100 WBC 0 /100 WBCS (0.0-0.0); Platelet Count 180 X 10*3/uL (140-440); RDW 12.4 % (11.5-14.5); WBC 3.33 X 10*3/uL (4.50-10.00)
== END | disposition home or self-care (01) ==
LOC: LABWHC1 06:55
PROVIDERS: ATTEND Internal Medicine Cardiovascular Disease
DX: R06.02 Shortness of breath (principal)
CPT/HCPCS: 36415; 84443; 85027

== ENCOUNTER → 2021-11-26 | Outpatient (CLI) | payer MEDICARE ==
[2021-11-26 10:46] LABS: Basophils # (A) 0.03 X 10*3/uL (0.00-0.10); Basophils % (A) 0.8 %; Eosinophils # (A) 0.05 X 10*3/uL (0.04-0.35); Eosinophils % (A) 1.3 %; HCT 34.3 % (39.6-50.0); HGB 11.5 g/dL (13.0-17.0); Immature Grans, Automated 0.5 %; Lymphocytes # (A) 1.02 X 10*3/uL (0.90-5.00); Lymphocytes % (A) 26.5 %; MCH 30.2 pg (27.0-32.0); MCHC 33.5 g/dL (32.0-37.0); Mean Platelet Volume 9.7 fL (9.5-12.2); Monocytes # (A) 0.44 X 10*3/uL (0.20-1.00); Monocytes % (A) 11.4 %; NRBC Per 100 WBC 0 /100 WBCS (0.0-0.0); Neutrophils # (A) 2.29 X 10*3/uL (1.80-7.70); Neutrophils % (A) 59.5 %; Platelet Count 195 X 10*3/uL (140-440); RBC 3.81 X 10*6/uL (4.40-5.60); WBC 3.85 X 10*3/uL (4.50-10.00)
[2021-11-26 10:57] LABS: African American GFR (CKD) 90.6 (60.0-200.0); Albumin 4.1 g/dL (3.8-4.9); Albumin/Globulin Ratio 1.67 (1.60-3.17); Anion Gap 10.2 mmol/L (10.00-18.00); BUN/Creat Ratio 21.59 Ratio (12.00-20.00); Blood Urea Nitrogen 21.2 mg/dL (9.0-27.0); Calcium 9.3 mg/dL (8.7-10.3); Carbon Dioxide 24.7 mmol/L (20.0-27.5); Globulin 2.5 g/dL (1.6-3.3); HDL Cholesterol 57.4 mg/dL (40.00-60.00); Non-African American GFR(CKD) 78.2 (60.0-200.0); Potassium 4.3 mmol/L (3.5-5.5); Total Bilirubin 0.4 mg/dL (0.30-1.20); Total Protein 6.6 g/dL (6.2-8.2); Triglycerides 45.3 mg/dL (0.00-149.00)
[2021-11-26 11:14] LABS: Chol/HDL Ratio 2.32 Ratio; LDL Cholesterol,Direct Reflex 63.2 mg/dL (0.00-129.00)
[2021-11-26 18:41] LABS: Urine Creatinine 69.1 mg/dL (39.0-259.0)
== END | disposition home or self-care (01) ==
LOC: LABWHC1 06:59
PROVIDERS: ATTEND Family Medicine
DX: I10 Essential (primary) hypertension (principal); E78.2 Mixed hyperlipidemia; R60.9 Edema, unspecified
CPT/HCPCS: 36415; 80053; 80061; 82043; 82570; 83721; 83880; 85025

== ENCOUNTER → 2022-02-04 | Outpatient (CLI) | payer MEDICARE ==
[2022-02-04 15:09] LABS: ALT 20 U/L (10-49); AST 27 U/L (14-35); African American GFR (CKD) 99.3 (60.0-200.0); Albumin 4.2 g/dL (3.8-4.9); Albumin/Globulin Ratio 1.86 (1.60-3.17); Alkaline Phosphatase 94 U/L (41-126); BUN/Creat Ratio 17.25 Ratio (12.00-20.00); Blood Urea Nitrogen 15.7 mg/dL (9.0-27.0); Calcium 9.4 mg/dL (8.7-10.3); Carbon Dioxide 25.6 mmol/L (20.0-27.5); Chloride 98 mmol/L (96-109); Chol/HDL Ratio 2.23 Ratio; Globulin 2.2 g/dL (1.6-3.3); Glucose 189 mg/dL (70-110); LDL Cholesterol,Calculated 64.7 mg/dL (0.0-131.0); Non-African American GFR(CKD) 85.7 (60.0-200.0); Potassium 4.5 mmol/L (3.5-5.5); Sodium 133 mmol/L (135-145); Total Protein 6.4 g/dL (6.2-8.2); VLDL Calculation 10.16 mg/dL (5.00-40.00)
[2022-02-04 22:51] LABS: Urine Creatinine 68.7 mg/dL (39.0-259.0)
== END | disposition home or self-care (01) ==
LOC: LABWHC1 06:56
PROVIDERS: ATTEND Internal Medicine Endocrinology, Diabetes & Metabolism
DX: E10.65 Type 1 diabetes mellitus with hyperglycemia (principal)
CPT/HCPCS: 36415; 80053; 80061; 82043; 82570; 83036; 84443

== ENCOUNTER → 2022-07-04 | Outpatient (CLI) | payer MEDICARE ==
[2022-07-04 12:21] LABS: ALT 17 U/L (10-49); AST 22 U/L (14-35); African American GFR (CKD) 85.5 (60.0-200.0); Albumin 4.2 g/dL (3.8-4.9); Albumin/Globulin Ratio 1.69 (1.60-3.17); Alkaline Phosphatase 93 U/L (41-126); Blood Urea Nitrogen 17.2 mg/dL (9.0-27.0); Calcium 9.5 mg/dL (8.7-10.3); Carbon Dioxide 25.1 mmol/L (20.0-27.5); Chloride 100 mmol/L (96-109); Chol/HDL Ratio 2.44 Ratio; Globulin 2.5 g/dL (1.6-3.3); Glucose 120 mg/dL (70-110); Non-African American GFR(CKD) 73.8 (60.0-200.0); Potassium 4.5 mmol/L (3.5-5.5); Sodium 135 mmol/L (135-145); Total Protein 6.6 g/dL (6.2-8.2); VLDL Calculation 8.48 mg/dL (5.00-40.00)
[2022-07-04 14:07] LABS: Urine Creatinine 52.2 mg/dL (39.0-259.0)
== END | disposition home or self-care (01) ==
LOC: LABWHC1 06:52
PROVIDERS: ATTEND Family Medicine
DX: Z00.01 Encounter for general adult medical examination with abnormal findings (principal); E10.69 Type 1 diabetes mellitus with other specified complication; N40.0 Benign prostatic hyperplasia without lower urinary tract symptoms; E78.2 Mixed hyperlipidemia; E53.8 Deficiency of other specified B group vitamins; E55.9 Vitamin D deficiency, unspecified
CPT/HCPCS: 36415; 80053; 80061; 82043; 82306; 82570; 82607; 83036; 84153; 84439; 84443

== ENCOUNTER 2022-07-25 12:12 | Emergency (ER) | payer MEDICARE ==
[2022-07-25 12:33] VITALS: TEMP 97.6
[2022-07-25] MEDS ORDERED: LIDOCAINE 5% PATCH TOPICAL ONE (13:05)
[2022-07-25] MEDS ORDERED: KETOROLAC 15 MG/ML 1 ML VIAL IM STA (13:05)
[2022-07-25] MEDS ORDERED: HYDROcodone/APAP 5-325MG 1 EACH TAB PO STA (13:05)
--- NOTE | 2022-07-25 13:15 | ED ---
Fall HPI - General Chief Complaint: Fall Stated Complaint: fell L rib pain Time Seen by Provider: 07/25/22 12:55 Source: patient, RN notes reviewed Mode of arrival: ambulatory Limitations: no limitations - History of Present Illness Initial Comments: This is a 71-year-old male who presents to the emergency department for a fall. States that a week ago he tripped over a tractor trailer in a parking lot and fell forward, landing on his left side. He continues to have pain over the left rib cage and is concerned that he may have broken a rib. Pain is worse when he tries to breathe or cough. He is not taking anything for his pain. Denies hitting his head or sustaining any other injuries. Denies any fevers, chills, sore throat, cough, dyspnea, palpitations, abdominal pain, nausea, vomiting, diarrhea, back pain, or headaches. MD Complaint: fall Onset/Timin -: week(s) Fall From: standing - Related Data Home Medications Medication Instructions Recorded Confirmed Aspirin 81 mg PO DAILY 02/12/14 04/23/20 Atorvastatin Calcium [Lipitor] 20 mg PO DAILY 02/12/14 04/23/20 Cholecalciferol [Vitamin D3 (25 1,000 unit PO DAILY 02/12/14 04/23/20 Mcg = 1000 Iu)] Naproxen Sodium 220 mg PO DAILY 08/27/19 04/23/20 Omeprazole 20 mg PO DAILY 08/27/19 04/23/20 Insulin Aspart (For Pump) [NovoLOG 0.01 unit SQ-PUMP CONTINUOUS 04/13/20 04/23/20 (For Pump)] Losartan [Cozaar] 50 mg PO BID-W/MEALS 04/13/20 04/23/20 Previous Rx's Medication Instructions Recorded Midodrine [ProAmatine] 2.5 mg PO AC-TID #30 tab 04/24/20 Diclofenac Sodium [Voltaren] 75 mg PO BID PRN #20 tab 07/25/22 HYDROcodone/APAP 10-325MG [Chouteau 1 tab PO Q6HR PRN 3 Days #6 tab 07/25/22 10-325] Lidocaine 5% Patch [Lidoderm 5% 1 patch TOPICAL DAILY PRN #30 patch 07/25/22 Patch] Allergies Allergy/AdvReac Type Severity Reaction Status Date / Time No Known Allergies Allergy Verified 07/25/22 12:33 Review of Systems ROS Statement: Those systems with pertinent positive or pertinent negative responses have been documented in the HPI. ROS Other: All systems not noted in ROS Statement are negative. Past Medical History Past Medical History: Coronary Artery Disease (CAD), COPD, Diabetes Mellitus, Eye Disorder, GERD/Reflux, Hyperlipidemia, Hypertension, Osteoarthritis (OA), Seizure Disorder, Vascular Disorder Additional Past Medical History / Comment(s): IDDM type II on insulin pump, ne uropathy bilateral feet, past R eye retinal bleeds with surgery, pancreatitis years ago, arthritis bilateral feet/toes cross, vertigo when first stands, seizure over 30 yrs ago/was on medication couple years then taken off, pt has had L caratid endartectomy. History of Any Multi-Drug Resistant Organisms: None Reported Past Surgical History: Coronary Bypass/CABG, Heart Catheterization, Joint Replacement Additional Past Surgical History / Comment(s): 2000 CABG 3 vessel, tilt table test, 1996 L caratid endartectomy, colonoscopies, total R knee arthroplasty, R lasik eye surgery for retinal bleed. Past Anesthesia/Blood Transfusion Reactions: No Reported Reaction Past Psychological History: No Psychological Hx Reported Smoking Status: Former smoker Past Alcohol Use History: None Reported Past Drug Use History: None Reported - Past Family History Father Family Medical History: COPD, CVA/TIA, Myocardial Infarction ([place]) Additional Family Medical History / Comment(s): FATHER AT AGE 68 YRS OF AN [place]. Sister(s) Family Medical History: Myocardial Infarction ([place]) Mother Family Medical History: COPD, Osteoarthritis (OA), Pneumonia Additional Family Medical History / Comment(s): MOTHER AT AGE 53YRS OF PNEUMONIA. General Exam Limitations: no limitations General appearance: alert, in no apparent distress Head exam: Present: atraumatic, normocephalic, normal inspection Respiratory exam: Present: normal lung sounds bilaterally. Absent: respiratory distress, wheezes, rales, rhonchi, stridor Cardiovascular Exam: Present: regular rate, normal rhythm, normal heart sounds. Absent: systolic murmur, diastolic murmur, rubs, gallop, clicks GI/Abdominal exam: Present: other (Tenderness to palpation of the left rib cage. Minor overlying ecchymosis.) Neurological exam: Present: alert, oriented X3, CN II-XII intact Psychiatric exam: Present: normal affect, normal mood Skin exam: Present: warm, dry, intact, normal color. Absent: rash Course Vital Signs 07/25/22 07/25/22 12:30 14:34 Temperature 97.6 F 97.6 F Pulse Rate 67 60 Respiratory 20 18 Rate Blood Pressure 126/65 161/73 O2 Sat by Pulse 99 98 Oximetry Medical Decision Making - Medical Decision Making This is a 71-year-old male who presents to the emergency department for left rib pain after a fall. Was pt. sent in by a medical professional or institution? @ -No Did you speak to anyone other than the patient for history? @ -No Did you review nursing and triage notes? @ -Yes, and I agree, it is accurate with regards to the patient's symptoms. Were old charts reviewed? @ -No Differential Diagnosis? @ -Differential Rib Pain: Fracture, contusion, organ injury, pneumothorax, costochondritis, pleuritis, this is not meant to be an all-inclusive list. CT interpreted by me (1pt min.)? @ -Computed tomography scan of the chest obtained. My interpretation identifi es fractures to ribs 8, 9, and 10 on the left. What testing was considered but not performed? (CT, X-rays, U/S, labs)? Why? @ -None What meds were considered but not given? Why? @ -None Did you discuss the management of the patient with other professionals? @ -No Did you reconcile home meds? @ -No Was smoking cessation discussed for >3mins.? @ -No Was critical care preformed (if so, how long)? @ -No Were there social determinants of health that impacted care today? How? (Homelessness, low income, unemployed, alcoholism, drug addiction, transportati on, low edu. Level, literacy, decrease access to med. care, intermediate, rehab)? @ -No Was there de-escalation of care discussed even if they declined? (Discuss DNR or withdrawal of care, Hospice)? @ -No What co-morbidities impacted this encounter? (DM, HTN, Smoking, COPD, CAD, Cancer, CVA, Hep., AIDS, mental health diagnosis, sleep apnea, morbid obesity)? @ -Osteoarthritis Was patient admitted / discharged? @ -Discharged. Chest x-ray obtained revealing hairline rib fractures along the anterior ribs 8, 9, and 10. Pain was controlled with Chouteau, Toradol, and a lidocaine patch. Findings reviewed with the patient. He did have pulmonary nodules on the CT scan, we discussed that he will need 12 month follow-up on this with his PCP. Prescription for Chouteau, diclofenac, and lidocaine patches provided with dosing instructions reviewed. Patient is instructed to take the diclofenac with Tylenol if needed and avoid any other jhov-cpr-ympyjmw anti- inflammatories such as ibuprofen with the diclofenac. He is also advised to take the Chouteau sparingly when his pain is the most severe and to avoid driving or operating machinery when taking this. The importance of taking several deep breaths multiple times daily was also reviewed to reduce the risk of developing a secondary pneumonia. Undiagnosed new problem with uncertain prognosis? @ -None Drug Therapy requiring intensive monitoring for toxicity (Heparin, Nitro, Insulin, Cardizem)? @ -None Were any procedures done? @ -None Diagnosis/symptom? @ -Rib fractures Acute, or Chronic, or Acute on Chronic? @ -Acute Uncomplicated (without systemic symptoms) or Complicated (systemic symptoms)? @ -Uncomplicated Side effects of treatment? @ -None Exacerbation, Progression, or Severe Exacerbation] @ -Not applicable Poses a threat to life or bodily function? @ -No Return precautions reviewed in depth, the patient is instructed to return to the emergency department with any new, worsening, or concerning symptoms. Patient verbalized understanding. This case was discussed in detail with the attending ED physician, Dr. Martin. Presentation, findings, and treatment plan discussed in detail as well. - Radiology Data Radiology results: report reviewed, image reviewed Disposition Clinical Impression: Ribs, multiple fractures Disposition: HOME SELF-CARE Instructions (If sedation given, give patient instructions): Rib Fracture (ED) Additional Instructions: Return to the emergency department with any new, worsening, or concerning symptoms. Take the diclofenac up to twice daily as needed for pain. If you take this, do not take eslc-ufo-jeooliq anti-inflammatories such as ibuprofen. You can use the lidocaine patches daily as needed. Take the Chouteau sparingly when your pain is the most severe and be aware that it may make you sleepy. Make sure that you're taking several deep breaths each day despite the pain, to reduce your risk of developing a secondary pneumonia. Follow up with your primary care provider in 1-2 days. Prescriptions: Lidocaine 5% Patch [Lidoderm 5% Patch] 1 patch TOPICAL DAILY PRN #30 patch PRN Reason: Pain HYDROcodone/APAP 10-325MG [Chouteau 10-325] 1 tab PO Q6HR PRN 3 Days #6 tab PRN Reason: Pain Diclofenac Sodium [Voltaren] 75 mg PO BID PRN #20 tab PRN Reason: Pain Is patient prescribed a controlled substance at d/c from ED?: Yes When asked, does pt state using other controlled substances?: No If prescribed controlled substance>3 days was MAPS reviewed?: Prescribed <3 Days Referrals: Alla Pham MD [Primary Care Provider] - 1-2 days
--- NOTE | 2022-07-25 14:15 | CT ---
EXAMINATION TYPE: CT chest wo con DATE OF EXAM: 07/25/2022 COMPARISON: HISTORY: Left sided rib pain after fall CT DLP: 480.1 mGycm. Automated Exposure Control for Dose Reduction was Utilized. TECHNIQUE: CT scan of the thorax is performed without IV contrast. FINDINGS: LUNGS: The lungs are grossly clear, there is no concerning parenchymal mass or nodule identified. T here is no pleural effusion or pneumothorax seen. The tracheobronchial tree is patent. There is a 2 mm nodule in the right upper lobe image 20 and additional subpleural nodule measuring 1 mm axial 17. Within the right lower lobe there is a 2 mm nodule adjacent to the fissure axial image 31 There are scattered 1 to 2 mm nodule seen in the left lower lobe small characterize. Within the right lung apex there is a 2 mm and 1 mm adjacent subpleural nodule. MEDIASTINUM: Lack of IV contrast is noted to limit evaluation for mediastinal and especially hilar ad enopathy. There are no definitive greater than 1 cm hilar or mediastinal lymph nodes. The heart is no rmal in size and there is coronary artery calcification. Small hiatal hernia. Atherosclerotic changes aortic aneurysm. Sternotomy wires are seen.. OTHER: Hypertrophic and degenerative changes of the spine. On axial image 49 there is a linear nondis placed lucency through the anterior margin of the left eighth, ninth and 10th rib. IMPRESSION: 1. Nondisplaced hairline fracture anterior left eighth, ninth and 10th ribs, correlate with point ten derness. No pneumothorax. 2. Multiple less than 5 mm bilateral pulmonary nodules too small to characterize but likely benign. R ecommend 12 month follow-up annual screening to confirm stability.
[2022-07-25 14:36] VITALS: BP 161/73; PULSE 60; RESP 18
== END 2022-07-25 14:35 | disposition home or self-care (01) ==
LOC: EC 12:12
DX: S22.32XA Fracture of one rib, left side, initial encounter for closed fracture (principal); I10 Essential (primary) hypertension; I25.10 Atherosclerotic heart disease of native coronary artery without angina pectoris; J44.9 Chronic obstructive pulmonary disease, unspecified; E11.9 Type 2 diabetes mellitus without complications; E78.5 Hyperlipidemia, unspecified; K21.9 Gastro-esophageal reflux disease without esophagitis; Z79.4 Long term (current) use of insulin; Z79.82 Long term (current) use of aspirin; Z79.899 Other long term (current) drug therapy; Z87.891 Personal history of nicotine dependence; W18.30XA Fall on same level, unspecified, initial encounter
CPT/HCPCS: 71250; 99284; 96372; J1885

== ENCOUNTER 2022-10-14 15:37 | Inpatient (IN) | payer MEDICARE ==
[2022-10-14 16:47] LABS: Glucose,Whole Blood 193 mg/dL (70-110)
[2022-10-14 16:59] LABS: Basophils % (A) 0 %; Eosinophils # (A) 0.1 k/uL (0-0.7); Eosinophils % (A) 1 %; HCT 30.7 % (39.0-53.0); HGB 10.9 gm/dL (13.0-17.5); Lymphocytes # (A) 0.8 k/uL (1.0-4.8); Lymphocytes % (A) 20 %; MCH 31.8 pg (25.0-35.0); MCHC 35.5 g/dL (31.0-37.0); MCV 89.7 fL (80.0-100.0); Monocytes # (A) 0.3 k/uL (0-1.0); Monocytes % (A) 8 %; Neutrophils # (A) 2.7 k/uL (1.3-7.7); Neutrophils % (A) 68 %; Platelet Count 161 k/uL (150-450); RBC 3.42 m/uL (4.30-5.90); RDW 12.4 % (11.5-15.5)
[2022-10-14 17:08] LABS: Prothrombin Time 10.5 sec (9.0-12.0)
[2022-10-14 17:10] LABS: ALT 20 U/L (4-49); AST 24 U/L (17-59); African American GFR (CKD) >90 (>60 ml/min/1.73 sqM); Albumin 3.7 g/dL (3.5-5.0); Alkaline Phosphatase 84 U/L (38-126); Anion Gap 9 mmol/L; Blood Urea Nitrogen 21 mg/dL (9-20); Calcium 8.4 mg/dL (8.4-10.2); Carbon Dioxide 18 mmol/L (22-30); Chloride 96 mmol/L (98-107); Glucose 178 mg/dL (74-99); Non-African American GFR(CKD) 82 (>60 ml/min/1.73 sqM); Potassium 4.4 mmol/L (3.5-5.1); Sodium 123 mmol/L (137-145); Total Bilirubin 0.4 mg/dL (0.2-1.3); Total Protein 6.5 g/dL (6.3-8.2)
--- NOTE | 2022-10-14 17:15 | XR ---
EXAMINATION TYPE: XR chest 2V DATE OF EXAM: 10/14/2022 4:54 PM COMPARISON: Chest radiographs from 04/23/2020 TECHNIQUE: XR chest 2V Frontal and lateral views of the chest. CLINICAL INDICATION:Male, 72 years old with history of Dizzy; FINDINGS: Lungs/Pleura: There is flattening of the diaphragm with increased lucency of the lungs. No evidence o f pneumothorax, pleural effusion or focal consolidation. Pulmonary vascularity: Unremarkable. Heart/mediastinum: Cardiomediastinal silhouette is unremarkable. Musculoskeletal: No acute osseous pathology. Midline sternotomy wires are noted. IMPRESSION: 1. No acute cardiopulmonary disease process. 2. COPD changes.
--- NOTE | 2022-10-14 19:01 | ED ---
Dizziness HPI - General Chief Complaint: Dizziness Stated Complaint: light headed and dizzy Time Seen by Provider: 10/14/22 17:58 Source: patient Mode of arrival: ambulatory Limitations: no limitations - History of Present Illness Initial Comments: This patient is a 9-year-old man who presents to have evaluation for constellation of symptoms that is been going on for weeks to months but were worse this morning. The patient states that he has been having episodes in which she is dizzy and lightheaded. Today he had gone shopping at [employer], and then became very dizzy, lightheaded, was feeling short of breath and was sweaty. Patient states that he had seen his primary physician for this and had tried pills for vertigo but they hadn't really seem to help much. After today's episode which was worse he decided he should be seen here. No chest pain. No syncope. Symptoms are minimal at rest but worse when he does any activity. MD Complaint: dizziness, near syncope -: week(s) Timing: gradual onset Description: lightheadedness, off-balance, difficulty walking History of Same: No History of Trauma: No Severity: moderate Improves With: remaining still Worsens With: movement, exertion Associated Symptoms: shortness of breath, weakness - Related Data Home Medications Medication Instructions Recorded Confirmed Aspirin 81 mg PO DAILY 02/12/14 10/14/22 Atorvastatin Calcium [Lipitor] 20 mg PO HS 02/12/14 10/14/22 Naproxen Sodium 220 mg PO DAILY 08/27/19 10/14/22 Omeprazole 20 mg PO DAILY 08/27/19 10/14/22 Insulin Aspart (For Pump) [NovoLOG 0.01 unit SQ-PUMP CONTINUOUS 04/13/20 10/14/22 (For Pump)] Cyanocobalamin [Vitamin B-12] 500 mcg PO DAILY 10/14/22 10/14/22 Meclizine [Antivert] 25 mg PO TID 10/14/22 10/14/22 amLODIPine [Norvasc] 10 mg PO DAILY 10/14/22 10/14/22 hydrALAZINE HCL [Apresoline] 25 mg PO TID 10/14/22 10/14/22 lisinopriL [Zestril] 40 mg PO DAILY 10/14/22 10/14/22 Allergies Allergy/AdvReac Type Severity Reaction Status Date / Time No Known Allergies Allergy Verified 10/14/22 21:02 Review of Systems ROS Statement: Those systems with pertinent positive or pertinent negative responses have been documented in the HPI. ROS Other: All systems not noted in ROS Statement are negative. Constitutional: Reports: weakness. Denies: fever, chills Eyes: Denies: vision change Respiratory: Denies: cough, dyspnea, wheezes Cardiovascular: Reports: dyspnea on exertion. Denies: chest pain, palpitations, edema Gastrointestinal: Denies: abdominal pain, nausea, vomiting, diarrhea, melena, hematochezia Genitourinary: Denies: dysuria, frequency, hematuria Musculoskeletal: Denies: back pain Skin: Denies: rash Neurological: Denies: headache, weakness, numbness, confusion Past Medical History Past Medical History: Coronary Artery Disease (CAD), COPD, Diabetes Mellitus, Eye Disorder, GERD/Reflux, Hyperlipidemia, Hypertension, Osteoarthritis (OA), Seizure Disorder, Vascular Disorder Additional Past Medical History / Comment(s): IDDM type II on insulin pump, neuropathy bilateral feet, past R eye retinal bleeds with surgery, pancreatitis years ago, arthritis bilateral feet/toes cross, vertigo when first stands, seizure over 30 yrs ago/was on medication couple years then taken off, pt has had L caratid endartectomy. History of Any Multi-Drug Resistant Organisms: None Reported Past Surgical History: Coronary Bypass/CABG, Heart Catheterization, Joint Replacement Additional Past Surgical History / Comment(s): 2000 CABG 3 vessel, tilt table test, 1996 L caratid endartectomy, colonoscopies, total R knee arthroplasty, R lasik eye surgery for retinal bleed. Past Anesthesia/Blood Transfusion Reactions: No Reported Reaction Past Psychological History: No Psychological Hx Reported Smoking Status: Former smoker Past Alcohol Use History: None Reported Past Drug Use History: None Reported - Past Family History Father Family Medical History: COPD, CVA/TIA, Myocardial Infarction ([place]) Additional Family Medical History / Comment(s): FATHER AT AGE 68 YRS OF AN OR. Sister(s) Family Medical History: Myocardial Infarction (OR) Mother Family Medical History: COPD, Osteoarthritis (OA), Pneumonia Additional Family Medical History / Comment(s): MOTHER AT AGE 53YRS OF PNEUMONIA. General Exam Limitations: no limitations General appearance: alert, in no apparent distress Head exam: Present: atraumatic, normocephalic Eye exam: Present: normal appearance. Absent: scleral icterus, conjunctival injection ENT exam: Present: normal oropharynx Neck exam: Present: normal inspection Respiratory exam: Present: normal lung sounds bilaterally. Absent: respiratory distress, wheezes, rales, rhonchi, stridor Cardiovascular Exam: Present: regular rate, normal rhythm, normal heart sounds. Absent: systolic murmur, diastolic murmur, rubs, gallop GI/Abdominal exam: Present: soft. Absent: distended, tenderness, guarding, rebound, rigid, mass Extremities exam: Present: normal inspection, normal capillary refill. Absent: pedal edema, calf tenderness Back exam: Present: normal inspection. Absent: CVA tenderness (R), CVA tenderness (L) Neurological exam: Present: alert, oriented X3, CN II-XII intact. Absent: motor sensory deficit Skin exam: Present: warm, dry, intact, normal color. Absent: rash Course Vital Signs 10/14/22 10/14/22 10/14/22 16:12 18:47 22:27 Temperature 98.5 F 98.3 F Pulse Rate 63 53 L 52 L Respiratory 20 14 18 Rate Blood Pressure 133/66 131/71 O2 Sat by Pulse 99 99 98 Oximetry EKG Findings - EKG Results: EKG: interpreted by JANES, sinus rhythm, normal QRS, normal ST/T - Blocks, [place], Hypertrophy, ST Abn: AV and intraventricular conduction: 1 AV block QRS axis and voltage: left axis deviation (-30 to -90) (Borderline left axis) Medical Decision Making - Medical Decision Making This patient is 72-year-old man presenting with a constellation of symptoms and found to have significant hyponatremia. Case is discussed with the admitting physician and he will have saline replacement as well as further labs and nephrology consultation. The patient had chest x-ray which I interpreted his has negative for acute infiltrate, pneumothorax, congestive heart failure Was pt. sent in by a medical professional or institution ([facility], [employer], urgent care, hospital, or residential...) When possible be specific @ -[No] Did you speak to anyone other than the patient for history (EMS, parent, family, police, friend...)? What history was obtained from this source @ -[The patient's family did give history Did you review nursing and triage notes (agree or disagree)? Why? @ -[I reviewed and agree with nursing and triage notes] Were old charts reviewed (outside hosp., previous admission, EMS record, old EKG, old radiological studies, urgent care reports/EKG's, residential records)? Report findings @ -[No old charts were reviewed] Differential Diagnosis (chest pain, altered mental status, abdominal pain women, abdominal pain men, vaginal bleeding, weakness, fever, dyspnea, syncope, headache, dizziness, GI bleed, back pain, seizure, CVA, palpatations, mental health, musculoskeletal)? @ -[Differential Weakness: Hypoglycemia, shock, sepsis, hyponatremia, anemia, infection, OR, ETOH, adverse medicine reaction, overdose, stroke, this is not meant to be an all-inclusive list. EKG interpreted by me (3pts min.). @ -[As above] X-rays interpreted by me (1pt min.). @ -[As above CT interpreted by me (1pt min.). @ -[None done] U/S interpreted by me (1pt. min.). @ -[None done] What testing was considered but not performed or refused? (CT, X-rays, U/S, labs)? Why? @ -[None] What meds were considered but not given or refused? Why? @ -[None] Did you discuss the management of the patient with other professionals (professionals i.e. , PA, [employer] DIST[employer]OR, lab, RT, psych nurse, social security specialist, culinary arts teacher, te acher, tactical response group officer, embedded case manager)? Give summary @ -[Case discussed with the admitting physician Was smoking cessation discussed for >3mins.? @ -[No] Was critical care preformed (if so, how long)? @ -[No] Were there social determinants of health that impacted care today? How? (Homele ssness, low income, unemployed, alcoholism, drug addiction, transportation, low edu. Level, literacy, decrease access to med. care, [facility], rehab)? @ -[No] Was there de-escalation of care discussed even if they declined (Discuss DNR or withdrawal of care, Hospice)? DNR status @ -[No] What co-morbidities impacted this encounter? (DM, HTN, Smoking, COPD, CAD, Cancer, CVA, ARF, Chemo, Hep., AIDS, mental health diagnosis, sleep apnea, morbid obesity)? @ -[None] Was patient admitted / discharged? Hospital course, mention meds given and route, prescriptions, significant lab abnormalities, going to OR and other pertinent info. @ -[Admitted, see above Undiagnosed new problem with uncertain prognosis? @ -[No] Drug Therapy requiring intensive monitoring for toxicity (Heparin, Nitro, Insulin, Cardizem)? @ -[No] Were any procedures done? @ -[No] Diagnosis/symptom? @ -Acute hyponatremia Acute generalized weakness Acute, or Chronic, or Acute on Chronic? @ -[acute Uncomplicated (without systemic symptoms) or Complicated (systemic symptoms)? @ -[Uncomplicated Side effects of treatment? @ -[No] Exacerbation, Progression, or Severe Exacerbation? @ -[No] Poses a threat to life or bodily function? How? (Chest pain, [place], [place], pneumonia, PE, COPD, DKA, ARF, appy, cholecystitis, CVA, Diverticulitis, Homicidal, Suicidal, threat to staff... and all critical care pts) @ -[Yes, hypokalemia that progresses further can represented to life - Lab Data Result diagrams: 10/16/22 06:43 10/16/22 06:43 Lab Results 10/14/22 10/14/22 10/14/22 Range/Units 16:44 16:44 16:44 WBC 4.0 (3.8-10.6) k/uL RBC 3.42 L (4.30-5.90) m/uL Hgb 10.9 L (13.0-17.5) gm/dL Hct 30.7 L (39.0-53.0) % MCV 89.7 (80.0-100.0) fL MCH 31.8 (25.0-35.0) pg MCHC 35.5 (31.0-37.0) g/dL RDW 12.4 (11.5-15.5) % Plt Count 161 (150-450) k/uL MPV 8.0 Neutrophils % 68 % Lymphocytes % 20 % Monocytes % 8 % Eosinophils % 1 % Basophils % 0 % Neutrophils # 2.7 (1.3-7.7) k/uL Lymphocytes # 0.8 L (1.0-4.8) k/uL Monocytes # 0.3 (0-1.0) k/uL Eosinophils # 0.1 (0-0.7) k/uL Basophils # 0.0 (0-0.2) k/uL PT 10.5 (9.0-12.0) sec INR 1.0 (<1.2) Sodium 123 L (137-145) mmol/L Potassium 4.4 (3.5-5.1) mmol/L Chloride 96 L (98-107) mmol/L Carbon Dioxide 18 L (22-30) mmol/L Anion Gap 9 mmol/L BUN 21 H (9-20) mg/dL Creatinine 0.94 (0.66-1.25) mg/dL Est GFR (CKD-EPI)AfAm >90 (>60 ml/min/1.73 sqM) Est GFR (CKD-EPI)NonAf 82 (>60 ml/min/1.73 sqM) Glucose 178 H (74-99) mg/dL POC Glucose (mg/dL) (70-110) mg/dL POC Glu Junior Network Administrator ID Calcium 8.4 (8.4-10.2) mg/dL Total Bilirubin 0.4 (0.2-1.3) mg/dL AST 24 (17-59) U/L ALT 20 (4-49) U/L Alkaline Phosphatase 84 (38-126) U/L Troponin I (0.000-0.034) ng/mL Total Protein 6.5 (6.3-8.2) g/dL Albumin 3.7 (3.5-5.0) g/dL Urine pH (5.0-8.0) Urine Osmolality (50-1400) mosm/kg Ur Random Creatinine mg/dL Ur Random Sodium (40-220) mmol/L Ur Random Potassium 10/14/22 10/14/22 10/14/22 Range/Units 16:44 16:44 21:05 WBC (3.8-10.6) k/uL RBC (4.30-5.90) m/uL Hgb (13.0-17.5) gm/dL Hct (39.0-53.0) % MCV (80.0-100.0) fL MCH (25.0-35.0) pg MCHC (31.0-37.0) g/dL RDW (11.5-15.5) % Plt Count (150-450) k/uL MPV Neutrophils % % Lymphocytes % % Monocytes % % Eosinophils % % Basophils % % Neutrophils # (1.3-7.7) k/uL Lymphocytes # (1.0-4.8) k/uL Monocytes # (0-1.0) k/uL Eosinophils # (0-0.7) k/uL Basophils # (0-0.2) k/uL PT (9.0-12.0) sec INR (<1.2) Sodium (137-145) mmol/L Potassium (3.5-5.1) mmol/L Chloride (98-107) mmol/L Carbon Dioxide (22-30) mmol/L Anion Gap mmol/L BUN (9-20) mg/dL Creatinine (0.66-1.25) mg/dL Est GFR (CKD-EPI)AfAm (>60 ml/min/1.73 sqM) Est GFR (CKD-EPI)NonAf (>60 ml/min/1.73 sqM) Glucose (74-99) mg/dL POC Glucose (mg/dL) 193 H (70-110) mg/dL POC Glu Junior Network Administrator ID Liniarski, Haritha Calcium (8.4-10.2) mg/dL Total Bilirubin (0.2-1.3) mg/dL AST (17-59) U/L ALT (4-49) U/L Alkaline Phosphatase (38-126) U/L Troponin I <0.012 (0.000-0.034) ng/mL Total Protein (6.3-8.2) g/dL Albumin (3.5-5.0) g/dL Urine pH 6.5 (5.0-8.0) Urine Osmolality (50-1400) mosm/kg Ur Random Creatinine mg/dL Ur Random Sodium (40-220) mmol/L Ur Random Potassium 10/14/22 10/14/22 Range/Units 21:05 21:05 WBC (3.8-10.6) k/uL RBC (4.30-5.90) m/uL Hgb (13.0-17.5) gm/dL Hct (39.0-53.0) % MCV (80.0-100.0) fL MCH (25.0-35.0) pg MCHC (31.0-37.0) g/dL RDW (11.5-15.5) % Plt Count (150-450) k/uL MPV Neutrophils % % Lymphocytes % % Monocytes % % Eosinophils % % Basophils % % Neutrophils # (1.3-7.7) k/uL Lymphocytes # (1.0-4.8) k/uL Monocytes # (0-1.0) k/uL Eosinophils # (0-0.7) k/uL Basophils # (0-0.2) k/uL PT (9.0-12.0) sec INR (<1.2) Sodium (137-145) mmol/L Potassium (3.5-5.1) mmol/L Chloride (98-107) mmol/L Carbon Dioxide (22-30) mmol/L Anion Gap mmol/L BUN (9-20) mg/dL Creatinine (0.66-1.25) mg/dL Est GFR (CKD-EPI)AfAm (>60 ml/min/1.73 sqM) Est GFR (CKD-EPI)NonAf (>60 ml/min/1.73 sqM) Glucose (74-99) mg/dL POC Glucose (mg/dL) (70-110) mg/dL POC Glu Junior Network Administrator ID Calcium (8.4-10.2) mg/dL Total Bilirubin (0.2-1.3) mg/dL AST (17-59) U/L ALT (4-49) U/L Alkaline Phosphatase (38-126) U/L Troponin I (0.000-0.034) ng/mL Total Protein (6.3-8.2) g/dL Albumin (3.5-5.0) g/dL Urine pH (5.0-8.0) Urine Osmolality 178 (50-1400) mosm/kg Ur Random Creatinine 28.4 mg/dL Ur Random Sodium 30 L (40-220) mmol/L Ur Random Potassium Cancelled Disposition Clinical Impression: Hyponatremia, Dehydration Disposition: ADMITTED IP TO THIS [facility] Condition: Serious Is patient prescribed a controlled substance at d/c from ED?: No
[2022-10-14] MEDS ORDERED: ONDANSETRON 4 MG/2 ML VIAL IVP PRN (21:03)
[2022-10-14] MEDS ORDERED: NALOXONE 0.4 MG/ML 1 ML VIAL IV PRN (21:03)
[2022-10-14] MEDS ORDERED: ACETAMINOPHEN TAB 325 MG TAB PO PRN (21:03)
[2022-10-14] MEDS: SODIUM CHLORIDE 0.9% 1,000 ML IV SCH (21:46)
[2022-10-14 22:03] LABS: Creatinine,Urine Random 28.4 mg/dL
[2022-10-14 22:15] LABS: Glucose,Whole Blood 160 mg/dL (70-110)
[2022-10-14] MEDS ORDERED: DEXTROSE 50% SYRINGE 50 ML IVP PRN ×2 (22:16)
[2022-10-14] MEDS: Insulin Aspart (For Pump) 100 UNIT/ML VIAL SQ-PUMP SCH (22:45)
[2022-10-15] MEDS: SODIUM CHLORIDE 0.9% 1,000 ML IV SCH ×2 (05:49→13:06)
[2022-10-15 07:20] LABS: Glucose,Whole Blood 124 mg/dL (70-110)
[2022-10-15] MEDS: INSULIN ASPART (NovoLOG) 100 UNIT/ML VIAL SQ SCH ×4 (08:19→22:10)
[2022-10-15] MEDS: MECLIZINE 25 MG TAB PO SCH ×3 (09:58→21:06)
[2022-10-15] MEDS: ASPIRIN 81 MG PO SCH (09:58)
[2022-10-15] MEDS: CYANOCOBALAMIN 500 MCG TAB PO SCH (09:58)
[2022-10-15] MEDS: NAPROXEN 250 MG TAB PO SCH (09:58)
[2022-10-15] MEDS: PANTOPRAZOLE 40 MG TABLET PO SCH (09:58)
[2022-10-15] MEDS: amLODIPine 10 MG TAB PO SCH (09:58)
[2022-10-15] MEDS: FAMOTIDINE 20 MG TAB PO SCH ×2 (09:58→21:06)
[2022-10-15 12:17] LABS: Glucose,Whole Blood 200 mg/dL (70-110)
--- NOTE | 2022-10-15 12:43 | HP ---
HISTORY AND PHYSICAL CHIEF COMPLAINT: Dizziness. HISTORY OF PRESENT ILLNESS: This is a 72-year-old gentleman with a past medical history of multiple medical problems, being followed by Dr. Pham in the outpatient setting, was admitted with lightheadedness and dizzy. The patient was found to be in severe hyponatremia with sodium of 123, admitted for further evaluation and treatment. The patient is feeling better after IV fluids. There is no history of any fever, rigors, chills at this time. PAST MEDICAL HISTORY: History of hyponatremia, diabetes mellitus type 2, multiple medical issues. Rest of the history and rest of chart are also reviewed. HOME MEDICATIONS: Reviewed, include vitamin dose and rest of the medications reviewed. ALLERGIES: None. FAMILY HISTORY: History of COPD SOCIAL HISTORY: Previous smoker. REVIEW OF SYSTEMS: Fourteen-point review is negative except as mentioned earlier. PHYSICAL EXAMINATION: VITAL SIGNS: Pulse is 50, blood pressure n respirations 16. HEENT: Conjunctivae normal. Oral mucosa dry. CARDIOVASCULAR: S1, S2. RESPIRATIONS: Clear to auscultation. ABDOMEN: Soft, nontender. LEGS: No edema. No cyanosis. LABORATORY DATA: Labs are noted. Today's labs are pending. ASSESSMENT: 1. Severe hyponatremia, possibly hypovolemic. 2. Lightheadedness, weakness. 3. Diabetes mellitus, type 2. 4. Hypertension. 5. Hyperlipidemia. 6. Multiple medical issues. RECOMMENDATIONS AND DISCUSSION: This is a 72-year-old gentleman, who presented with multiple complex medical issues. We will monitor the patient closely. I would continue IV fluids, repeat sodium and increase ambulation. Otherwise, we will closely monitor. Recommend close outpatient followup with sodium. The sodium restriction may be removed temporarily. Prognosis is guarded. discussed with the patient. MMODL / IJN: [id number] / MTDD
[2022-10-15 12:54] LABS: BUN/Creat Ratio 20.12 Ratio (12.00-20.00); Blood Urea Nitrogen 16.1 mg/dL (9.0-27.0); Calcium 8.7 mg/dL (8.7-10.3); Carbon Dioxide 22.1 mmol/L (21.6-31.8); Chloride 102 mmol/L (96-109); Glucose 111 mg/dL (70-110); Potassium 4.8 mmol/L (3.5-5.5); Sodium 133 mmol/L (135-145)
[2022-10-15 16:19] LABS: Appearance,Urine Clear (Clear); Bilirubin,Urine Negative (Negative); Blood,Urine Negative (Negative); Color,Urine Light Yellow; Glucose,Urine (UA) 1+ (Negative); Ketones,Urine Negative (Negative); Leukocyte Esterase,Urine Negative (Negative); Nitrite,Urine Negative (Negative); PH, Urine 6.5 (5.0-8.0); Protein,Urine Negative (Negative); Specific Gravity,Urine <1.005 (1.001-1.035); Urobilinogen,Urine <2.0 mg/dL (<2.0)
[2022-10-15 17:16] LABS: Glucose,Whole Blood 168 mg/dL (70-110)
--- NOTE | 2022-10-15 17:45 | P.NPCON ---
History of Present Illness - Reason for Consult Consult date: 10/15/22 hyponatremia - Chief Complaint Dizzy - History of Present Illness Admitted to the hospital with feeling dizzy lightheaded. Not feeling well for the last few days., Episode of nausea vomiting yesterday. Denies any history of malignancy diuretic use or antipsychotic or antidepressant use. History of hyponatremia in the past with a sodium of 132-135. On admission serum sodium was 123, improved with IV fluids. Feels better. No nausea vomiting diarrhea. Lightheadedness improved. Review of Systems Constitutional: Reports as per HPI Past Medical History Past Medical History: Coronary Artery Disease (CAD), COPD, Diabetes Mellitus, Eye Disorder, GERD/Reflux, Hyperlipidemia, Hypertension, Osteoarthritis (OA), Seizure Disorder, Vascular Disorder Additional Past Medical History / Comment(s): IDDM type II on insulin pump, neuropathy bilateral feet, past R eye retinal bleeds with surgery, pancreatitis years ago, arthritis bilateral feet/toes cross, vertigo when first stands, seizure over 30 yrs ago/was on medication couple years then taken off, pt has had L caratid endartectomy. History of Any Multi-Drug Resistant Organisms: None Reported Past Surgical History: Coronary Bypass/CABG, Heart Catheterization, Joint Replacement Additional Past Surgical History / Comment(s): 2000 CABG 3 vessel, tilt table te st, 1996 L caratid endartectomy, colonoscopies, total R knee arthroplasty, R lasik eye surgery for retinal bleed. Past Anesthesia/Blood Transfusion Reactions: No Reported Reaction Past Psychological History: No Psychological Hx Reported Smoking Status: Former smoker Past Alcohol Use History: None Reported Past Drug Use History: None Reported - Past Family History Father Family Medical History: COPD, CVA/TIA, Myocardial Infarction ([place]) Additional Family Medical History / Comment(s): FATHER AT AGE 68 YRS OF AN [place]. Sister(s) Family Medical History: Myocardial Infarction ([place]) Mother Family Medical History: COPD, Osteoarthritis (OA), Pneumonia Additional Family Medical History / Comment(s): MOTHER AT AGE 53YRS OF PNEUMONIA. Medications and Allergies Home Medications Medication Instructions Recorded Confirmed Type Aspirin 81 mg PO DAILY 02/12/14 10/14/22 History Atorvastatin Calcium [Lipitor] 20 mg PO HS 02/12/14 10/14/22 History Naproxen Sodium 220 mg PO DAILY 08/27/19 10/14/22 History Omeprazole 20 mg PO DAILY 08/27/19 10/14/22 History Insulin Aspart (For Pump) [NovoLOG 0.01 unit SQ-PUMP CONTINUOUS 04/13/20 10/14/22 History (For Pump)] Cyanocobalamin [Vitamin B-12] 500 mcg PO DAILY 10/14/22 10/14/22 History Meclizine [Antivert] 25 mg PO TID 10/14/22 10/14/22 History amLODIPine [Norvasc] 10 mg PO DAILY 10/14/22 10/14/22 History hydrALAZINE HCL [Apresoline] 25 mg PO TID 10/14/22 10/14/22 History lisinopriL [Zestril] 40 mg PO DAILY 10/14/22 10/14/22 History Allergies Allergy/AdvReac Type Severity Reaction Status Date / Time No Known Allergies Allergy Verified 10/14/22 21:02 Physical Exam Vitals: Vital Signs Temp Pulse Pulse Pulse Pulse Pulse Resp 10/15/22 12:14 97.4 F L 56 L 18 10/15/22 11:41 58 L 52 L 53 L 10/15/22 07:17 97.7 F 52 L 16 10/15/22 01:07 97.8 F 50 L 16 10/14/22 22:39 97.7 F 48 L 17 10/14/22 22:27 98.3 F 52 L 18 10/14/22 18:47 53 L 14 BP BP BP BP Pulse Ox 10/15/22 12:14 158/68 98 10/15/22 11:41 150/66 153/67 161/62 10/15/22 07:17 143/58 99 10/15/22 01:07 135/65 97 10/14/22 22:39 156/61 98 10/14/22 22:27 131/71 98 10/14/22 18:47 99 Intake and Output 10/15/22 10/15/22 10/15/22 06:59 14:59 22:59 Other: # Voids 2 1 No acute distress S1-S2 heard Lungs clear Abdomen soft No edema Results - Lab Results Most recent lab results Calcium 8.7 mg/dL (8.7-10.3) 10/15/22 07:06 10/14/22 16:44 10/15/22 07:06 Assessment and Plan Assessment: #1 hypovolemic hyponatremia. #2 essential hypertension Plan: 1 sodium improved with IV fluids. #2 stop IV fluids. Encourage by mouth intake #3 check repeat sodium today.
[2022-10-15 18:57] LABS: Potassium 4.8 mmol/L (3.5-5.1)
[2022-10-15 18:58] LABS: African American GFR (CKD) >90 (>60 ml/min/1.73 sqM); Anion Gap 7 mmol/L; Blood Urea Nitrogen 15 mg/dL (9-20); Calcium 8.5 mg/dL (8.4-10.2); Carbon Dioxide 23 mmol/L (22-30); Chloride 100 mmol/L (98-107); Glucose 212 mg/dL (74-99); Non-African American GFR(CKD) 81 (>60 ml/min/1.73 sqM); Sodium 130 mmol/L (137-145)
[2022-10-15 20:04] LABS: Glucose,Whole Blood 264 mg/dL (70-110)
[2022-10-15] MEDS ORDERED: ATORVASTATIN 20 MG TAB PO SCH (21:00)
[2022-10-15] MEDS: Insulin Aspart (For Pump) 100 UNIT/ML VIAL SQ-PUMP SCH (21:07)
[2022-10-16 02:31] VITALS: RESP 16
[2022-10-16 07:09] LABS: Glucose,Whole Blood 134 mg/dL (70-110)
[2022-10-16 07:38] VITALS: BP 159/74; PULSE 52; TEMP 97.9
[2022-10-16] MEDS: INSULIN ASPART (NovoLOG) 100 UNIT/ML VIAL SQ SCH ×2 (07:41→12:15)
[2022-10-16 09:39] LABS: BUN/Creat Ratio 15.12 Ratio (12.00-20.00); Blood Urea Nitrogen 12.1 mg/dL (9.0-27.0); Calcium 8.6 mg/dL (8.7-10.3); Carbon Dioxide 23.9 mmol/L (21.6-31.8); Chloride 101 mmol/L (96-109); Glucose 137 mg/dL (70-110); Potassium 4.6 mmol/L (3.5-5.5); Sodium 132 mmol/L (135-145)
[2022-10-16] MEDS: FAMOTIDINE 20 MG TAB PO SCH (09:43)
[2022-10-16] MEDS: NAPROXEN 250 MG TAB PO SCH (09:43)
[2022-10-16] MEDS: amLODIPine 10 MG TAB PO SCH (09:43)
[2022-10-16] MEDS: ASPIRIN 81 MG PO SCH (09:43)
[2022-10-16] MEDS: CYANOCOBALAMIN 500 MCG TAB PO SCH (09:44)
[2022-10-16] MEDS: PANTOPRAZOLE 40 MG TABLET PO SCH (09:44)
[2022-10-16 10:00] LABS: Basophils # (A) 0.02 X 10*3/uL (0.00-0.10); Basophils % (A) 0.7 %; Eosinophils # (A) 0.07 X 10*3/uL (0.04-0.35); Eosinophils % (A) 2.3 %; HCT 32.2 % (39.6-50.0); HGB 10.6 d/dL (13.0-17.0); Immature Grans, Automated 0 %; Lymphocytes # (A) 0.87 X 10*3/uL (0.90-5.00); Lymphocytes % (A) 29.1 %; MCH 29.9 pg (27.0-32.0); MCHC 32.9 d/dL (32.0-37.0); MCV 90.7 FL (80.0-97.0); Mean Platelet Volume 9.7 FL (9.5-12.2); Monocytes # (A) 0.35 X 10*3/uL (0.20-1.00); Monocytes % (A) 11.7 %; NRBC Per 100 WBC 0 X 10*3/uL (0.00-0.01); Neutrophils # (A) 1.68 X 10*3/uL (1.80-7.70); Neutrophils % (A) 56.2 %; Platelet Count 181 X 10*3/uL (140-440); RBC 3.55 X 10*6/uL (4.40-5.60); RDW 12.8 % (11.5-14.5); WBC 2.99 X 10*3/uL (4.50-10.00)
[2022-10-16] MEDS: MECLIZINE 25 MG TAB PO SCH (10:27)
--- NOTE | 2022-10-16 13:15 | DS ---
DISCHARGE SUMMARY FINAL DIAGNOSES: 1. Severe hyponatremia, possibly hypovolemic hyponatremia, improved. 2. Lightheadedness, weakness, improved. 3. Diabetes mellitus, type 2. 4. Hypertension. 5. Hyperlipidemia. 6. Multiple medical issues. DISCHARGE DISPOSITION: The patient will be discharged in stable condition, guarded prognosis. HISTORY OF PRESENT ILLNESS: This is a 72-year-old gentleman with a past medical history admitted with severe hyponatremia and weakness. The sodium was 123 on presentation, improved to 132. Nephrology saw the patient and the patient will be discharged in stable condition. Guarded prognosis. PHYSICAL EXAMINATION: VITAL SIGNS: Stable. CARDIOVASCULAR: S1, S2. ABDOMEN: Soft. NERVOUS SYSTEM: No focal deficits. DISCHARGE MEDICATIONS: Resume the home medications and followup labs, CBC, BMP with Dr. Pham. MMODL / IJN: [id number] /
--- NOTE | 2022-10-16 13:37 | P.PN ---
Subjective Progress Note Date: 10/16/22 Follow-up for hyponatremia, doing better. No nausea vomiting or diarrhea. Objective - Vital Signs Vital signs: Vital Signs Temp 97.9 F 10/16/22 07:37 Pulse 52 L 10/16/22 07:37 Resp 16 10/16/22 07:37 BP 159/74 10/16/22 07:37 Pulse Ox 98 10/16/22 07:37 FiO2 Intake & Output 10/15/22 10/16/22 10/16/22 18:59 06:59 18:59 Other: Voiding Method Toilet Toilet # Voids 1 2 - Exam No acute distress S1-S2 heard Lungs clear No edema - Labs CBC & Chem 7: 10/16/22 06:43 10/16/22 06:43 Labs: Abnormal Lab Results - Last 24 Hours (Table) 10/15/22 10/15/22 10/15/22 Range/Units 17:15 18:11 19:56 WBC (4.50-10.00) X 10*3/uL RBC (4.40-5.60) X 10*6/uL Hgb (13.0-17.0) d/dL Hct (39.6-50.0) % Neutrophils # (1.80-7.70) X 10*3/uL Lymphocytes # (0.90-5.00) X 10*3/uL Sodium 130 L (137-145) mmol/L Glucose 212 H (74-99) mg/dL POC Glucose (mg/dL) 168 H 264 H (70-110) mg/dL Calcium (8.7-10.3) mg/dL 10/16/22 10/16/22 10/16/22 Range/Units 06:43 06:43 07:07 WBC 2.99 L (4.50-10.00) X 10*3/uL RBC 3.55 L (4.40-5.60) X 10*6/uL Hgb 10.6 L (13.0-17.0) d/dL Hct 32.2 L (39.6-50.0) % Neutrophils # 1.68 L (1.80-7.70) X 10*3/uL Lymphocytes # 0.87 L (0.90-5.00) X 10*3/uL Sodium 132 L (137-145) mmol/L Glucose 137 H (74-99) mg/dL POC Glucose (mg/dL) 134 H (70-110) mg/dL Calcium 8.6 L (8.7-10.3) mg/dL Assessment and Plan Assessment: #1 hypovolemic hyponatremia. -SIADH is a differential. #2 essential hypertension Plan: 1 sodium improved with IV fluids. #2 follow-up in the office in 1-2 week with repeat labs.
--- NOTE | 2022-10-19 15:57 | CDI ---
Documentation Clarification Form Date: 10/19/2022 03:53:58 PM From: Yael Cooper RN, CCDS Email: [email or web address] Admit Date: 10/14/2022 09:06:00 PM Patient Name: Hunter Whiteside Visit Number: [id number] Discharge Date: 10/16/2022 01:02:00 PM ATTENTION: The Clinical Documentation Specialists (CDI) and [facility] Coding Staff appreciate your assistance in clarifying documentation. Please respond to the clarification below the line at the bottom and electronically sign. The CDI & [facility] Coding staff will review the response and follow-up if needed. Please note: Queries are made part of the Legal Health Record. If you have any questions, please contact the author of this message via ITS. Dr. Yandy Hilliard Your patient had hyponatremia. Clarification is requested. History/Risk Factors: CAD, COPD, DM, GERD, HLD, HTN. Came in with dizziness, lightheaded, off balance and sweaty. Clinical indicators: H&P: "Severe hyponatremia, possibly hypovolemic." 10/15 Nephrology: "hypovolemic hyponatremia." 10/14 Na 123, BUN 21, Cr 0.94, albumin 3.7, urine osmolality 178, urine Cr 28.4, urine sodium 30 10/15 Na 133-130, serum osmolality 286 10/16 Na 132 10/16 Discharge summary: "admitted with severe hyponatremia and weakness." 10/16 Nephrology: "hypovolemic hyponatremia. SIADH is a differential." Treatment: 0.9 NS @75ml/hr, monitor labs, encourage po intake Please clarify the diagnosis of hyponatremia: [ ] Hyponatremia only [ ] SIADH [ ] Other condition, please specify [ ] Unable to determine MTDD
--- NOTE | 2022-10-25 10:31 | CDI ---
Documentation Clarification Form Date: 10/19/2022 03:53:00 PM From: Yael Cooper Admit Date: 10/14/2022 09:06:00 PM Patient Name: Hunter Whiteside Visit Number: [id number] Discharge Date: 10/16/2022 01:02:00 PM ATTENTION: The Clinical Documentation Specialists (CDI) and [facility] Coding Staff appreciate your assistance in clarifying documentation. Please respond to the clarification below the line at the bottom and electronically sign. The CDI & [facility] Coding staff will review the response and follow-up if needed. Please note: Queries are made part of the Legal Health Record. If you have any questions, please contact the author of this message via ITS. Dr. Yandy Hilliard Your patient had hyponatremia. Clarification is requested. History/Risk Factors: CAD, COPD, DM, GERD, HLD, HTN. Came in with dizziness, lightheaded, off balance and sweaty. Clinical indicators: H&P: "Severe hyponatremia, possibly hypovolemic." 10/15 Nephrology: "hypovolemic hyponatremia." 10/14 Na 123, BUN 21, Cr 0.94, albumin 3.7, urine osmolality 178, urine Cr 28.4, urine sodium 30 10/15 Na 133-130, serum osmolality 286 10/16 Na 132 10/16 Discharge summary: "admitted with severe hyponatremia and weakness." 10/16 Nephrology: "hypovolemic hyponatremia. SIADH is a differential." Treatment: 0.9 NS @75ml/hr, monitor labs, encourage po intake Is there an additional diagnosis and/or clinical significance related to the above lab result/information? [ ] Hyponatremia only [ ] SIADH [ ] Other condition, please specify [ ] Unable to determine Hyponatremia only MTDD
== END 2022-10-16 13:02 | disposition home or self-care (01) | DRG 641 ==
LOC: EC 15:37 → 5NMEDONC 21:06
PROVIDERS: ADMIT Hospitalist; ATTEND Hospitalist
DX: E87.1 Hypo-osmolality and hyponatremia (principal); E11.41 Type 2 diabetes mellitus with diabetic mononeuropathy; J44.9 Chronic obstructive pulmonary disease, unspecified; Z79.4 Long term (current) use of insulin; G57.93 Unspecified mononeuropathy of bilateral lower limbs; E86.1 Hypovolemia; I10 Essential (primary) hypertension; E78.5 Hyperlipidemia, unspecified; I25.10 Atherosclerotic heart disease of native coronary artery without angina pectoris; K21.9 Gastro-esophageal reflux disease without esophagitis; R26.2 Difficulty in walking, not elsewhere classified; H57.9 Unspecified disorder of eye and adnexa; M19.90 Unspecified osteoarthritis, unspecified site; Z79.82 Long term (current) use of aspirin; Z79.1 Long term (current) use of non-steroidal anti-inflammatories (NSAID); Z79.899 Other long term (current) drug therapy; Z87.891 Personal history of nicotine dependence; Z95.1 Presence of aortocoronary bypass graft; Z96.41 Presence of insulin pump (external) (internal); Z96.651 Presence of right artificial knee joint
CPT/HCPCS: 36415; 71046; 80048; 80053; 81003; 82570; 83036; 83930; 83935; 84133; 84300; 84484; 85025; 85610; 93005; 96360; 99285

== ENCOUNTER → 2022-11-18 | Outpatient (CLI) | payer MEDICARE ==
[2022-11-18 14:19] LABS: ALT 19 U/L (10-49); AST 22 U/L (14-35); Albumin 4.1 d/dL (3.8-4.9); Albumin/Globulin Ratio 2.05 Ratio (1.60-3.17); Alkaline Phosphatase 85 U/L (41-126); Blood Urea Nitrogen 17.5 mg/dL (9.0-27.0); Calcium 9.2 mg/dL (8.7-10.3); Chloride 98 mmol/L (96-109); Chol/HDL Ratio 2.07 Ratio; Glucose 162 mg/dL (70-110); LDL Cholesterol,Calculated 56.1 mg/dL (0.0-131.0); Potassium 4.6 mmol/L (3.5-5.5); Sodium 130 mmol/L (135-145); Total Bilirubin 0.3 mg/dL (0.3-1.2); Total Protein 6.1 d/dL (6.2-8.2); VLDL Calculation 10.02 mg/dL (5.00-40.00)
[2022-11-18 18:41] LABS: Urine Creatinine 48.4 mg/dL (39.0-259.0)
== END | disposition home or self-care (01) ==
LOC: LABWHC1 06:45
PROVIDERS: ATTEND Internal Medicine Endocrinology, Diabetes & Metabolism
DX: E10.65 Type 1 diabetes mellitus with hyperglycemia (principal)
CPT/HCPCS: 36415; 80053; 80061; 82043; 82570; 83036; 84443

== ENCOUNTER → 2022-11-24 | Outpatient (CLI) | payer MEDICARE ==
[2022-11-24 21:06] LABS: ALT 19 U/L (10-49); AST 20 U/L (14-35); Alkaline Phosphatase 86 U/L (41-126); BUN/Creat Ratio 15.18 Ratio (12.00-20.00); Blood Urea Nitrogen 16.7 mg/dL (9.0-27.0); Calcium 8.8 mg/dL (8.7-10.3); Carbon Dioxide 22.3 mmol/L (21.6-31.8); Chloride 100 mmol/L (96-109); Glucose 149 mg/dL (70-110); Potassium 4.5 mmol/L (3.5-5.5); Sodium 132 mmol/L (135-145); Total Bilirubin 0.2 mg/dL (0.3-1.2)
== END | disposition home or self-care (01) ==
LOC: LABWHC1 14:50
PROVIDERS: ATTEND Internal Medicine Endocrinology, Diabetes & Metabolism
DX: E10.65 Type 1 diabetes mellitus with hyperglycemia (principal)
CPT/HCPCS: 36415; 80053; 82024; 82533

== ENCOUNTER → 2023-01-30 | Outpatient (CLI) | payer MEDICARE ==
[2023-01-30 16:54] LABS: HCT 32.7 % (39.6-50.0); MCH 31.4 pg (27.0-32.0); MCHC 33.6 g/dL (32.0-37.0); MCV 93.4 FL (80.0-97.0); Mean Platelet Volume 9.8 FL (9.5-12.2); NRBC Per 100 WBC 0 X 10*3/uL (0.00-0.01); Platelet Count 193 X 10*3/uL (140-440); RDW 13.1 % (11.5-14.5); WBC 3.09 X 10*3/uL (4.50-10.00)
[2023-01-30 16:55] LABS: Basophils # (A) 0.03 X 10*3/uL (0.00-0.10); Eosinophils # (A) 0.08 X 10*3/uL (0.04-0.35); Eosinophils % (A) 2.6 %; Immature Grans, Automated 0 %; Lymphocytes # (A) 0.79 X 10*3/uL (0.90-5.00); Lymphocytes % (A) 25.6 %; Monocytes # (A) 0.41 X 10*3/uL (0.20-1.00); Monocytes % (A) 13.3 %; Neutrophils # (A) 1.78 X 10*3/uL (1.80-7.70); Neutrophils % (A) 57.5 %
[2023-01-30 22:22] LABS: ALT 17 U/L (10-49); AST 24 U/L (14-35); Albumin 3.9 g/dL (3.8-4.9); Albumin/Globulin Ratio 1.77 Ratio (1.60-3.17); Alkaline Phosphatase 86 U/L (41-126); BUN/Creat Ratio 16.56 Ratio (12.00-20.00); Blood Urea Nitrogen 14.9 mg/dL (9.0-27.0); Carbon Dioxide 24.9 mmol/L (21.6-31.8); Chloride 102 mmol/L (96-109); Chol/HDL Ratio 1.98 Ratio; Globulin 2.2 g/dL (1.6-3.3); Glucose 112 mg/dL (70-110); LDL Cholesterol,Calculated 61.4 mg/dL (0.0-131.0); Potassium 4.9 mmol/L (3.5-5.5); Sodium 137 mmol/L (135-145); Total Bilirubin 0.2 mg/dL (0.3-1.2); Total Protein 6.1 g/dL (6.2-8.2); VLDL Calculation 9.96 mg/dL (5.00-40.00)
[2023-01-30 22:32] LABS: PSA Annual Screen 0.741 ng/mL (0.000-4.000)
== END | disposition home or self-care (01) ==
LOC: LABWHC1 06:49
PROVIDERS: ATTEND Family Medicine
DX: Z12.5 Encounter for screening for malignant neoplasm of prostate (principal); I10 Essential (primary) hypertension; E10.69 Type 1 diabetes mellitus with other specified complication; N40.0 Benign prostatic hyperplasia without lower urinary tract symptoms
CPT/HCPCS: 80061; 80053; 84443; 85025; 82043; 82570; 83036; 36415; G0103

== ENCOUNTER → 2023-03-14 | Outpatient (CLI) | payer MEDICARE ==
--- NOTE | 2023-03-14 13:07 | MR ---
EXAMINATION TYPE: MR brain wo/w con DATE OF EXAM: 03/14/2023 COMPARISON: NONE HISTORY: 72-year-old male R41.3, comment Memory loss TECHNIQUE: Multiplanar, multisequence images of the brain and brainstem were acquired before and aft er administration of 10 mL IV Gadavist. Diffusion weighted imaging is performed. FINDINGS: No evidence for acute infarction, hemorrhage, mass, mass effect, midline shift, herniation, effacemen t of basal cisterns, or extra-axial fluid collection. The ventricles and sulci are age-appropriate with mild volume loss overlying the bilateral cerebral c onvexities. Major intracranial flow voids are intact. T2/FLAIR weighted sequences show only minimal periventricular and subcortical white white matter galvez ge in the cerebral hemispheres likely reflecting chronic small vessel ischemic disease. Midline structures demonstrate normal morphology. The craniocervical junction is normal. Post contrast images demonstrate no evidence of pathologic enhancement. Dural venous sinuses are pat ent. Moderate mucosal thickening ethmoid air cells and mild within the left frontal sinus areas in the ciarra ors of the maxillary sinuses. IMPRESSION: 1. No acute intracranial abnormality seen. Mild cerebral volume loss and only minimal burden of chron ic small vessel ischemic disease. No enhancing lesions. 2. Moderate chronic ethmoid sinus disease and mild within the maxillary sinuses.
== END | disposition home or self-care (01) ==
LOC: RADMRIMAIN 10:54
PROVIDERS: ATTEND Family Medicine
DX: J32.2 Chronic ethmoidal sinusitis (principal); J32.0 Chronic maxillary sinusitis; R41.3 Other amnesia; I67.82 Cerebral ischemia
CPT/HCPCS: 70553; A9585

== ENCOUNTER → 2023-04-04 | Outpatient (CLI) | payer MEDICARE ==
--- NOTE | 2023-04-20 13:29 | P.EN ---
[14] DAY EVENT MONITOR REPORT: INDICATION: Cardiac arrhythmias unspecified I49.9. START DATE: 04/04/2023 END DATE: 04/17/2023 Patient wore the monitor for 12 days which is 89% of total time. FINDINGS: Overall [good] quality study. Patient's baseline rhythm was [normal sinus rhythm with PACs]. Baseline heart rate was 66 bpm. There were no observed atrial fibrillation, atrial flutter or sustained ventricular rhythm. There were no observed sinus pauses which were more than 2 second long. There were frequent PVCs and PACs noted during the study. There were no sustained arrhythmias There were instances of sinus bradycardia was mostly noticed around 1:30 AM and 7:30 AM on various days Patient symptoms correlation: Patient triggered the event monitor without any specific symptoms. These events corresponded to PACs and PVCs. Please correlate clinically. If concern may consider a 48-hour Holter or an extended period Holter monitor to quantify PACs and PVCs. Stephen Mason MD, FACC, RPVI Thank you for allowing [facility] to participate in this patient's care. Feel free to reach out in case of any followup questions. Please CC this report to Dr. Alla Pham MD
== END | disposition home or self-care (01) ==
LOC: RADECHMAIN 07:59
PROVIDERS: ATTEND Family Medicine
DX: I49.3 Ventricular premature depolarization (principal); I49.1 Atrial premature depolarization; I49.9 Cardiac arrhythmia, unspecified
CPT/HCPCS: 93270

== ENCOUNTER 2023-05-26 05:54 | Day surgery (SDC) | payer MEDICARE ==
[2023-05-26] MEDS ORDERED: LIDOCAINE 1% (10MG/ML) FOR IV START INTRADERMA PRN (06:35)
[2023-05-26 06:52] LABS: Glucose,Whole Blood 185 mg/dL (70-110)
[2023-05-26] MEDS: LACTATED RINGERS 1,000 ML IV SCH (06:53)
[2023-05-26] MEDS ORDERED: PROPOFOL 10 MG/ML 20 ML VIAL IV ONE (07:00)
[2023-05-26 07:12] VITALS: TEMP 97.2
--- NOTE | 2023-05-26 07:30 | P.PCN ---
Date of Procedure: 05/26/23 Procedure(s) Performed: BRIEF HISTORY: Patient is a 72-year-old pleasant white male scheduled for an elective colonoscopy as a part of evaluation change in bowel habits for the last few months duration. PROCEDURE PERFORMED: Colonoscopy. PREOPERATIVE DIAGNOSIS: Change in bowel habits. IV sedation per Anesthesia. PROCEDURE: After informed consent was obtained, the patient, was brought into the endoscopy unit. IV sedation was administered by Anesthesia under continuous monitoring. Digital rectal examination was normal. Initially the Olympus CF-160 flexible video colonoscope was then inserted in the rectum, gradually advanced into the cecum without any difficulty. Careful examination was performed as the scope was gradually being withdrawn. Ileocecal valve and the appendiceal orifice were visualized and appeared normal. Prep was fair.. Mucosa of the cecum, ascending colon, transverse colon, descending colon, sigmoid colon, and rectum appeared normal. Scattered sigmoid diverticulosis. Retroflexion was performed in the rectum and no lesions were seen. The patient tolerated the procedure well. IMPRESSION: Normal-appearing colon from rectum to cecum no evidence of colorectal neoplasia Scattered sigmoid diverticulosis . RECOMMENDATIONS: Findings of this examination were discussed with the patient as well as his family. He was advised to continue with osmotic laxatives as needed. Recommend repeat screening colonoscopy in 10 years..
[2023-05-26 07:50] LABS: Glucose,Whole Blood 164 mg/dL (70-110)
[2023-05-26 08:20] VITALS: BP 120/53; PULSE 60; RESP 18
== END 2023-05-26 08:35 | disposition home or self-care (01) ==
LOC: ORWHC2ENDO 05:54
PROVIDERS: ATTEND Internal Medicine Gastroenterology
DX: K57.30 Diverticulosis of large intestine without perforation or abscess without bleeding (principal); I25.10 Atherosclerotic heart disease of native coronary artery without angina pectoris; I10 Essential (primary) hypertension; E78.5 Hyperlipidemia, unspecified; J44.9 Chronic obstructive pulmonary disease, unspecified; E11.9 Type 2 diabetes mellitus without complications; M19.90 Unspecified osteoarthritis, unspecified site; K21.9 Gastro-esophageal reflux disease without esophagitis; Z96.651 Presence of right artificial knee joint; Z98.890 Other specified postprocedural states; Z79.899 Other long term (current) drug therapy; Z95.1 Presence of aortocoronary bypass graft; Z79.51 Long term (current) use of inhaled steroids
CPT/HCPCS: 45378; J2704

== ENCOUNTER → 2023-10-10 | Outpatient (CLI) | payer MEDICARE ==
[2023-10-10 10:42] LABS: Basophils # (A) 0.03 X 10*3/uL (0.00-0.10); Basophils % (A) 0.8 %; Eosinophils # (A) 0.06 X 10*3/uL (0.04-0.35); Eosinophils % (A) 1.6 %; HCT 39.7 % (39.6-50.0); HGB 13.2 g/dL (13.0-17.0); Lymphocytes % (A) 24.7 %; MCH 30.6 pg (27.0-32.0); MCHC 33.2 g/dL (32.0-37.0); MCV 91.9 FL (80.0-97.0); Mean Platelet Volume 10.1 FL (9.5-12.2); NRBC Per 100 WBC 0 X 10*3/uL (0.00-0.01); Neutrophils # (A) 2.24 X 10*3/uL (1.80-7.70); Neutrophils % (A) 61.6 %; Platelet Count 170 X 10*3/uL (140-440); RBC 4.32 X 10*6/uL (4.40-5.60); RDW 12.8 % (11.5-14.5); WBC 3.64 X 10*3/uL (4.50-10.00)
[2023-10-10 11:06] LABS: ALT 22 U/L (10-49); AST 23 U/L (14-35); Alkaline Phosphatase 102 U/L (41-126); Blood Urea Nitrogen 15.4 mg/dL (9.0-27.0); Calcium 9.2 mg/dL (8.7-10.3); Carbon Dioxide 27.6 mmol/L (21.6-31.8); Chloride 103 mmol/L (96-109); Creatine Kinase 252 U/L (35-257); Globulin 2.1 g/dL (1.6-3.3); Glucose 140 mg/dL (70-110); LDL Cholesterol,Calculated 64.2 mg/dL (0.0-131.0); Potassium 4.3 mmol/L (3.5-5.5); Sodium 139 mmol/L (135-145); T4, Free (Free Thyroxine) 1.14 ng/dL (0.80-1.80); Total Bilirubin 0.3 mg/dL (0.3-1.2); Total Protein 6.1 g/dL (6.2-8.2)
[2023-10-10 18:01] LABS: Urine Creatinine 49.7 mg/dL (39.0-259.0)
== END | disposition home or self-care (01) ==
LOC: LABWHC1 06:48
PROVIDERS: ATTEND Family Medicine
DX: I65.22 Occlusion and stenosis of left carotid artery (principal); E10.21 Type 1 diabetes mellitus with diabetic nephropathy; I25.718 Atherosclerosis of autologous vein coronary artery bypass graft(s) with other forms of angina pectoris; E10.69 Type 1 diabetes mellitus with other specified complication; E10.319 Type 1 diabetes mellitus with unspecified diabetic retinopathy without macular edema
CPT/HCPCS: 36415; 80053; 80061; 82043; 82550; 82570; 83036; 84439; 84443; 85025

== ENCOUNTER → 2024-01-03 | Outpatient (CLI) | payer MEDICARE ==
[2024-01-03 10:42] LABS: Urine Creatinine 49.6 mg/dL (39.0-259.0)
[2024-01-03 10:45] LABS: ALT 17 U/L (10-49); AST 22 U/L (14-35); Albumin/Globulin Ratio 1.67 Ratio (1.60-3.17); Alkaline Phosphatase 103 U/L (41-126); Blood Urea Nitrogen 15.1 mg/dL (9.0-27.0); Calcium 8.9 mg/dL (8.7-10.3); Carbon Dioxide 27.4 mmol/L (21.6-31.8); Chloride 100 mmol/L (96-109); Chol/HDL Ratio 2.26 Ratio; Globulin 2.4 g/dL (1.6-3.3); Glucose 163 mg/dL (70-110); LDL Cholesterol,Calculated 69.4 mg/dL (0.0-131.0); Potassium 4.4 mmol/L (3.5-5.5); Sodium 136 mmol/L (135-145); Total Bilirubin 0.5 mg/dL (0.3-1.2); Total Protein 6.4 g/dL (6.2-8.2); VLDL Calculation 10.92 mg/dL (5.00-40.00)
[2024-01-03 11:04] LABS: C-Peptide <0.02 ng/mL (0.81-3.85)
== END | disposition home or self-care (01) ==
LOC: LABWHC1 06:49
PROVIDERS: ATTEND Internal Medicine
DX: E10.65 Type 1 diabetes mellitus with hyperglycemia (principal)
CPT/HCPCS: 36415; 80053; 80061; 82043; 82570; 83036; 84681

== ENCOUNTER → 2024-02-09 | Outpatient (CLI) | payer MEDICARE ==
[2024-02-09 10:47] LABS: ALT 17 U/L (10-49); AST 25 U/L (14-35); LDL Cholesterol,Calculated 67.4 mg/dL (0.0-131.0); VLDL Calculation 12.94 mg/dL (5.00-40.00)
== END | disposition home or self-care (01) ==
LOC: LABWHC1 06:48
PROVIDERS: ATTEND Internal Medicine Cardiovascular Disease
DX: E78.2 Mixed hyperlipidemia (principal)
CPT/HCPCS: 36415; 80061; 84450; 84460

== ENCOUNTER → 2024-02-27 | Outpatient (CLI) | payer MEDICARE ==
[2024-02-27 14:55] LABS: African American GFR (CKD) 77 (>60 ml/min/1.73 sqM); Blood Urea Nitrogen 19 mg/dL (9-20); Non-African American GFR(CKD) 67 (>60 ml/min/1.73 sqM)
--- NOTE | 2024-02-27 17:46 | CT ---
EXAMINATION TYPE: CT abdomen pelvis w con CT DLP: 1573 mGycm, Automated exposure control for dose reduction was used. DATE OF EXAM: 02/27/2024 5:15 PM COMPARISON: CT chest 07/25/2022 CLINICAL INDICATION:Male, 73 years old with history of K40.90 Right inguinal mass; Pt c/o pain from r ight inguinal hernia x1 month. TECHNIQUE: Standard CT of the abdomen and pelvis following the administration of 100 cc of Isovue 3 00 IV contrast material and oral contrast. Coronal and sagittal reformats were performed. FINDINGS: LOWER CHEST: Left lower lobe linear scarring and/or atelectasis. Minimal right lower lobe subsegmenta l atelectatic changes. ABDOMEN LIVER: Unremarkable GALLBLADDER AND BILE DUCTS: Unremarkable. PANCREAS: Unremarkable. SPLEEN: Unremarkable. ADRENAL GLANDS: Unremarkable. KIDNEYS AND URETERS: No evidence of hydronephrosis or renal calculus. The kidneys enhance symmetrical ly. Contrast is demonstrated within both collecting systems on the delayed phase. PELVIS BLADDER: Unremarkable REPRODUCTIVE: Postsurgical from penile prosthesis with reservoir within the right anterior pelvis. Ca lcification of bilateral vas deferens which can be seen with diabetes. ABDOMEN & PELVIS STOMACH AND BOWEL: Stomach and duodenum are unremarkable. Enteric contrast reaches the cecal junction . No focal bowel wall thickening or surrounding inflammatory changes. Redundant sigmoid colon. Mild t o moderate stool present within the left colon. No evidence of bowel obstruction. PERITONEUM: No evidence of pneumoperitoneum or free fluid. VASCULATURE: Mild atherosclerotic calcifications are present throughout the abdominal aorta and its b ranches. No evidence of aortic aneurysm. MUSCULOSKELETAL: No acute osseous abnormalities. Degenerative changes of the SI joints with anterior bridging with left greater than right. Multilevel degenerative disc disease with anterior osteophytos is. LYMPH NODES: No evidence for lymphadenopathy. SOFT TISSUE/ABDOMINAL WALL: Right indirect inguinal hernia containing nonobstructive small bowel. Tin y fat filled umbilical hernia. IMPRESSION: 1. Right indirect inguinal hernia containing nonobstructive small bowel. 2. Postsurgical changes from penile prosthesis. [facility], , 02/27/2024 5:44 PM
== END | disposition home or self-care (01) ==
LOC: RADCTMAIN 14:15
PROVIDERS: ATTEND Family Medicine
DX: K40.90 Unilateral inguinal hernia, without obstruction or gangrene, not specified as recurrent (principal); Z98.890 Other specified postprocedural states
CPT/HCPCS: 82565; 84520; 74177; 36415; Q9967

== ENCOUNTER → 2024-05-03 | Day surgery (SDC) | payer MEDICARE ==
[2024-04-30 11:56] VITALS: BMI 28.1
[~2024-05-03] MED LIST changes: +ACETAMINOPHEN TAB 500 MG TAB PO PRN; +DEXAMETHASONE SOD PHOSPHATE 4 MG/ML 1 ML VIAL IV ONE; +HEPARIN SODIUM,PORCINE 5,000 UNIT/ML 1 ML VIAL SQ PRN; +HYDROmorphone 0.5 MG/0.5 ML SYRINGE IVP PRN; -LIDOCAINE 1% (10MG/ML) FOR IV START INTRADERMA PRN; +ONDANSETRON 4 MG/2 ML VIAL IVP ONE
[2024-05-03] MEDS: IV FLUID CONTINUATION 1,000 ML IV ONE ×2 (09:02→10:18)
[2024-05-03 09:05] LABS: Glucose,Whole Blood 89 mg/dL (70-110)
[2024-05-03 09:15] VITALS: BP 182/92; PULSE 75; RESP 16; TEMP 97.6
--- NOTE | 2024-05-03 09:25 | P.HPADDEND ---
H&P Addendum H&P Addendum Date: 05/03/24 Patient I spoke by phone after reviewing his CAT scan. The patient has he is prosthetic balloon pump present in the preperitoneal space just adjacent to the medial aspect of the hernia. Given the anticipated added challenges with preperitoneal dissection and the risks that we might damage the prosthetic after reviewing the risks and benefits we have decided to proceed with open repair right inguinal hernia with mesh. Risks of bleeding, infection, recurrence, chronic pain, bladder and bowel injury, numbness, damage or malfunction of the indwelling penile prosthetic, scarring, and anesthesia related complications were discussed. The correlation between hernia recurrence, obesity and smoking were reviewed in detail. The patient understands and wishes to proceed.
[2024-05-03 09:32] LABS: Basophils % (A) 0 %; Eosinophils # (A) 0.1 k/uL (0-0.7); Eosinophils % (A) 1 %; HCT 38.3 % (39.0-53.0); HGB 12.6 gm/dL (13.0-17.5); Lymphocytes # (A) 0.8 k/uL (1.0-4.8); Lymphocytes % (A) 20 %; MCH 30.6 pg (25.0-35.0); MCHC 32.9 g/dL (31.0-37.0); MCV 92.9 fL (80.0-100.0); Mean Platelet Volume 7.8; Monocytes # (A) 0.3 k/uL (0-1.0); Monocytes % (A) 7 %; Neutrophils # (A) 2.9 k/uL (1.3-7.7); Neutrophils % (A) 69 %; Platelet Count 184 k/uL (150-450); RBC 4.13 m/uL (4.30-5.90); RDW 13.2 % (11.5-15.5); WBC 4.1 k/uL (3.8-10.6)
[2024-05-03 09:48] LABS: African American GFR (CKD) >90 (>60 ml/min/1.73 sqM); Anion Gap 5 mmol/L; Blood Urea Nitrogen 17 mg/dL (9-20); Calcium 8.6 mg/dL (8.4-10.2); Carbon Dioxide 26 mmol/L (22-30); Chloride 105 mmol/L (98-107); Glucose 93 mg/dL (74-99); Non-African American GFR(CKD) 80 (>60 ml/min/1.73 sqM); Sodium 136 mmol/L (137-145)
[2024-05-03 10:01] LABS: Potassium 4.9 mmol/L (3.5-5.1)
--- NOTE | 2024-05-03 10:23 | P.PN ---
Progress Note - Text Progress Note Date: 05/03/24 Patient today arrived in atrial fibrillation. Controlled rate. Asymptomatic. This appears to be a new issue for this patient with known coronary artery disease. 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 They are recommending we cancel today's elective procedure. They would like to see him in the office today and will likely start anticoagulation. They will plan further preoperative testing and will contact me when he is cleared for hernia repair. This was discussed both with the patient and his . Patient will be discharged from preop.
== END ==
LOC: OR 08:24
PROVIDERS: ATTEND Surgery
DX: Z53.8 Procedure and treatment not carried out for other reasons (principal); K40.90 Unilateral inguinal hernia, without obstruction or gangrene, not specified as recurrent; K21.9 Gastro-esophageal reflux disease without esophagitis; I25.10 Atherosclerotic heart disease of native coronary artery without angina pectoris; I73.9 Peripheral vascular disease, unspecified; J44.9 Chronic obstructive pulmonary disease, unspecified; I10 Essential (primary) hypertension; E78.5 Hyperlipidemia, unspecified; E11.9 Type 2 diabetes mellitus without complications; G40.89 Other seizures; M19.90 Unspecified osteoarthritis, unspecified site; Z89.511 Acquired absence of right leg below knee; Z95.1 Presence of aortocoronary bypass graft; Z79.82 Long term (current) use of aspirin; Z79.4 Long term (current) use of insulin; Z79.899 Other long term (current) drug therapy
CPT/HCPCS: 80048; 85025

== ENCOUNTER → 2024-06-14 | Day surgery (SDC) | payer MEDICARE ==
[~2024-06-14] MED LIST changes: +ACETAMINOPHEN TAB 325 MG TAB PO SCH; -ACETAMINOPHEN TAB 500 MG TAB PO PRN; -DEXAMETHASONE SOD PHOSPHATE 4 MG/ML 1 ML VIAL IV ONE; +DEXAMETHASONE SOD PHOSPHATE 4 MG/ML 1 ML VIAL ONE; +GLYCOPYRROLATE 0.2 MG/ML 2 ML VIAL ONE; -HEPARIN SODIUM,PORCINE 5,000 UNIT/ML 1 ML VIAL SQ PRN; +IBUPROFEN 600 MG TAB PO SCH; +KETOROLAC 15 MG/ML 1 ML VIAL ONE; -LACTATED RINGERS 1,000 ML IV SCH; +LIDOCAINE 1% INJ 10MG/ML (20 ML MDV) ONE; +MIDAZOLAM 2 MG/2 ML VIAL ONE; +NEOSTIGMINE 1 MG/ML 10 ML VIAL ONE; -ONDANSETRON 4 MG/2 ML VIAL IVP ONE; +PHENYLEPHRINE 10 MG/ML VIAL ONE; +PROPOFOL 10 MG/ML 20 ML VIAL IV ONE; +ROCURONIUM 10 MG/ML (5 ML VIAL) IV ONE; +ROPIVACAINE 5 MG/ML 30 ML VIAL ONE; +SODIUM CHLORIDE 0.9% (PF) 10 ML VIAL ONE; +SUCCINYLCHOLINE CHLORIDE 200 MG/10 ML VIAL IV ONE; +ePHEDrine 50 MG/ML 1 ML VIAL ONE; +fentaNYL (PF) 50 MCG/ML 2 ML AMP ONE
[2024-06-14 06:43] LABS: Glucose,Whole Blood 137 mg/dL (70-110)
[2024-06-14] MEDS: LACTATED RINGERS 1,000 ML IV SCH (06:46)
[2024-06-14] MEDS: ONDANSETRON 4 MG/2 ML VIAL IVP ONE (06:46)
[2024-06-14] MEDS: DEXAMETHASONE SOD PHOSPHATE 4 MG/ML 1 ML VIAL IV ONE (06:46)
[2024-06-14] MEDS: IV FLUID CONTINUATION 1,000 ML IV ONE ×2 (06:51→10:30)
[2024-06-14] MEDS: MIDAZOLAM 2 MG/2 ML VIAL IV PRN (07:08)
[2024-06-14] MEDS: ACETAMINOPHEN TAB 500 MG TAB PO STA (07:30)
[2024-06-14] MEDS: HEPARIN SODIUM,PORCINE 5,000 UNIT/ML 1 ML VIAL SQ STA (07:31)
[2024-06-14] MEDS: TAMSULOSIN 0.4 MG CAP.ER.24H PO STA (07:31)
--- NOTE | 2024-06-14 07:32 | P.GSHP ---
History of Present Illness H&P Date: 06/14/24 Chief Complaint: Right inguinal hernia 73-year-old here today for elective repair right inguinal hernia. Patient with recent diagnosis of atrial fibrillation. Last month he was scheduled for surgery came in and was uncontrolled rate. Surgery was canceled. He was seen by cardiology and cleared. Eliquis was held 2 days ago. Patient being scheduled for open repair given history of previous penile prosthesis with prosthetic reservoir in the preperitoneal space more on the right-hand side. Tubing goes through the right side adjacent to the hernia sac and spermatic cord. Past Medical History Past Medical History: Coronary Artery Disease (CAD), COPD, Diabetes Mellitus, Eye Disorder, GERD/Reflux, Hyperlipidemia, Hypertension, Memory Impairment, Osteoarthritis (OA), Seizure Disorder, Vascular Disorder Additional Past Medical History / Comment(s): rt inguinal hernia, wears adonay support socks-has no adonay leg swelling since wearing socks, IDDM type II on insulin pump, neuropathy bilateral feet, past R eye retinal bleeds with surgery, pancreatitis years ago, arthritis bilateral feet/toes cross, occas vertigo when first stands, OT seizure 1989 approx/was on medication couple years then taken off History of Any Multi-Drug Resistant Organisms: None Reported Past Surgical History: Coronary Bypass/CABG, Heart Catheterization, Joint Replacement Additional Past Surgical History / Comment(s): 2000 CABG 3 vessel, tilt table test, 1996 L carotid endartectomy, colonoscopies, total R knee arthroplasty, R eye surgery for retinal bleed,penile implant per Dr Harris's h&p, Past Anesthesia/Blood Transfusion Reactions: No Reported Reaction Additional Past Anesthesia/Blood Transfusion Reaction / Comment(s): no known hx blood transfusions Smoking Status: Former smoker - Past Family History Father Family Medical History: COPD, CVA/TIA, Myocardial Infarction (SD) Additional Family Medical History / Comment(s): FATHER AT AGE 68 YRS OF AN SD. Sister(s) Family Medical History: Diabetes Mellitus Additional Family Medical History / Comment(s): lived to age 70 Mother Family Medical History: COPD, Osteoarthritis (OA), Pneumonia Additional Family Medical History / Comment(s): MOTHER AT AGE 53YRS OF PNEUMONIA. Medications and Allergies Home Medications Medication Instructions Recorded Confirmed Type Atorvastatin Calcium [Lipitor] 20 mg PO HS 02/12/14 06/14/24 History Naproxen Sodium 220 mg PO DAILY 08/27/19 06/14/24 History Omeprazole 20 mg PO QAM 08/27/19 06/14/24 History Cyanocobalamin [Vitamin B-12] 500 mcg PO DAILY 10/14/22 06/14/24 History hydrALAZINE HCL [Apresoline] 50 mg PO TID 10/14/22 06/14/24 History Aspirin 81 mg PO DAILY 04/30/24 06/14/24 History Donepezil [Aricept] 20 mg PO HS 04/30/24 06/14/24 History Furosemide [Lasix] 40 mg PO DAILY 04/30/24 06/14/24 History Insulin Aspart (Niacinamide) 0 units SQ-PUMP CONTINUOUS 04/30/24 06/14/24 History [Fiasp 100 Unit/ml Vial] Memantine HCl 10 mg PO BID 04/30/24 06/14/24 History Apixaban [Eliquis] 5 mg PO BID 06/12/24 06/14/24 History Allergies Allergy/AdvReac Type Severity Reaction Status Date / Time No Known Allergies Allergy Verified 06/14/24 06:04 Surgical - Exam Vital Signs Temp Pulse Resp BP Pulse Ox 97.9 F 78 18 152/71 99 06/14/24 06:19 06/14/24 06:19 06/14/24 06:19 06/14/24 06:19 06/14/24 06:19 Physical exam: General: Well-developed, well-nourished HEENT: Normocephalic, sclerae nonicteric Abdomen: Nontender, nondistended, reducible right inguinal hernia with penile prosthesis present Extremities: No edema Neuro: Alert and oriented Results - Labs Abnormal Lab Results - Last 24 Hours (Table) 06/14/24 Range/Units 06:40 POC Glucose (mg/dL) 137 H (70-110) mg/dL Assessment and Plan (1) Right inguinal hernia Narrative/Plan: 73-year-old male with right inguinal hernia. Will proceed with open repair of inguinal hernia with mesh. Risks of bleeding, infection, recurrence, chronic pain, bladder and bowel injury, numbness, damage to the penile prosthetic, scarring, and anesthesia related complications were discussed. The correlation between hernia recurrence, obesity and smoking were reviewed in detail. The patient understands and wishes to proceed. Current Visit: Yes Status: Acute Code(s): K40.90 - UNIL INGUINAL HERNIA, W/O OBST OR GANGR, NOT SPCF RECUR SNOMED Code(s): 645374969
[2024-06-14] MEDS: BUPIVACAINE (PF) 0.25% 30 ML VIAL SQ ONE (07:57)
--- NOTE | 2024-06-14 08:38 | P.OP ---
Date of Procedure: 06/14/24 Procedure(s) Performed: PREOPERATIVE DIAGNOSIS: Right inguinal hernia POSTOPERATIVE DIAGNOSIS: Right indirect inguinal hernia PROCEDURE: Open repair right inguinal hernia with mesh SURGEON: Dr. Harris ANESTHESIA: General EBL: 5 cc OPERATIVE PROCEDURE DETAILS: Patient was placed in the operating table in the supine position and placed under general anesthesia. An oblique incision was made in the right groin. Dissection down through the subcutaneous tissues took place using electrocautery. The external oblique fascia was incised using a scalpel. This opening was lengthened using the Metzenbaum scissors. The spermatic cord was encircled with a [place] drain. During our dissection I could palpate the tubing from his penile prosthesis posterior and medial to the spermatic cord structures. This thankfully did not interfere to any significant degree to our dissection or hernia repair. The spermatic cord structures were identified and preserved. Careful dissection revealed an indirect hernia sac. This was carefully dissected back to the internal inguinal ring where it was ligated using 2 separate 0 silk stick tie sutures. A 3" x 6" Prolene mesh was cut to fit on the exposed fascia. This was sutured to the pubic tubercle the folding edge of the inguinal ligament and the conjoined tendon using interrupted 0 Vicryl sutures. A slit was created in the mesh and the mesh was wrapped around the spermatic cord and sutured back to itself. The external oblique was then reapproximated using a running 2-0 Vicryl suture. The subcutaneous tissues were reapproximated using a 3-0 Vicryl sutures. The skin was closed using 4-0 Monocryl sutures. Skin glue and sterile dressings were then applied. TYPE OF MESH USED: Flat Prolene mesh 3 inch x 6 inch cut appropriately LOCATION OF MESH: [place] FIXATION: 0 Vicryl PREOPERATIVE DISCUSSION ON SMOKING CESSASTION: Yes PREOPERATIVE DISCUSSION ON MORBID OBESITY: Yes PREOPERATIVE DISCUSSION ON APPROPRIATE USE OF NARCOTIC USE: Yes PREOPERATIVE EDUCATION: Multi Modal, Smoking Cessation and Weight Loss with BMI over 35. DISPOSITION: Stable to recovery room
[2024-06-14 08:49] LABS: Glucose,Whole Blood 179 mg/dL (70-110)
[2024-06-14 08:52] VITALS: TEMP 97
[2024-06-14 10:13] LABS: Glucose,Whole Blood 224 mg/dL (70-110)
--- NOTE | 2024-06-14 11:03 | P.ANPRN ---
Procedure Note - Anesthesia - Nerve Block Performed Right Transversus Abdominis Single Time Out Performed: Yes ([id number]) Date of Procedure: 06/14/24 Procedure Start Time: : Procedure Stop Time: :12 Location of Patient: PreOp Indication: Acute Post-Operative Pain, Requested by Surgeon Sedation Type: Sedate with meaningful contact maintained Preparation: Sterile Prep Position: Supine Catheter: None Needle Types: Pajunk Needle Gauge: 21 Ultrasound used to visualize needle placement: Yes Ultrasound used to observe medication spread: Yes Injectate: 0.5% Ropivacaine (see comment for volume) (21 mL of block solution used for the block. Which containing 20 mL of 0.5% ropivacaine mixed with 4 mg of dexamethasone) Blood Aspirated: No Pain Paresthesia on Injection Noted: No Resistance on Injection: Normal Image Stored and Saved: Yes Events: Uneventful and Well Tolerated
[2024-06-14 12:17] VITALS: RESP 16
[2024-06-14] MEDS: hydrALAZINE HCL 20 MG/ML 1 ML VIAL IVP STA (12:17)
[2024-06-14 12:37] VITALS: BP 159/69; PULSE 75
== END ==
LOC: OR 05:43
PROVIDERS: ATTEND Surgery
DX: K40.90 Unilateral inguinal hernia, without obstruction or gangrene, not specified as recurrent (principal); K21.9 Gastro-esophageal reflux disease without esophagitis; I25.10 Atherosclerotic heart disease of native coronary artery without angina pectoris; I48.91 Unspecified atrial fibrillation; J44.9 Chronic obstructive pulmonary disease, unspecified; I10 Essential (primary) hypertension; E78.5 Hyperlipidemia, unspecified; E11.9 Type 2 diabetes mellitus without complications; G40.89 Other seizures; Z82.61 Family history of arthritis; Z95.1 Presence of aortocoronary bypass graft; Z96.651 Presence of right artificial knee joint; Z87.891 Personal history of nicotine dependence; Z82.49 Family history of ischemic heart disease and other diseases of the circulatory system; Z82.3 Family history of stroke; Z83.3 Family history of diabetes mellitus; Z79.02 Long term (current) use of antithrombotics/antiplatelets; Z79.01 Long term (current) use of anticoagulants; Z79.4 Long term (current) use of insulin; Z79.82 Long term (current) use of aspirin; Z79.899 Other long term (current) drug therapy
CPT/HCPCS: 64486; 49505; C1781; J2250; J0330; J0360; J1644; J1100; J2710; J0690; J2405; J2003; J3010; J2795; J1885; J2704; J2371; J0665; J1596; 88302

== ENCOUNTER → 2024-08-27 | Outpatient (CLI) | payer MEDICARE ==
[2024-08-27 15:28] LABS: ALT 17 U/L (10-49); AST 25 U/L (14-35); Chol/HDL Ratio 2.59 Ratio; LDL Cholesterol,Calculated 72.7 mg/dL (0.0-131.0); VLDL Calculation 10.74 mg/dL (5.00-40.00)
== END | disposition home or self-care (01) ==
LOC: LABWHC1 06:53
PROVIDERS: ATTEND Internal Medicine Cardiovascular Disease
DX: E78.2 Mixed hyperlipidemia (principal)
CPT/HCPCS: 36415; 80061; 84450; 84460

== ENCOUNTER → 2024-08-28 | Outpatient (CLI) | payer MEDICARE ==
[2024-08-28 10:49] LABS: ALT 16 U/L (10-49); AST 24 U/L (14-35); Albumin 3.7 g/dL (3.8-4.9); Albumin/Globulin Ratio 1.61 Ratio (1.60-3.17); Alkaline Phosphatase 96 U/L (41-126); Blood Urea Nitrogen 15.8 mg/dL (9.0-27.0); Calcium 8.9 mg/dL (8.7-10.3); Carbon Dioxide 25.7 mmol/L (21.6-31.8); Chloride 104 mmol/L (96-109); Chol/HDL Ratio 2.42 Ratio; Globulin 2.3 g/dL (1.6-3.3); Glucose 123 mg/dL (70-110); LDL Cholesterol,Calculated 62.1 mg/dL (0.0-131.0); Potassium 4.2 mmol/L (3.5-5.5); Sodium 138 mmol/L (135-145); Total Bilirubin 0.3 mg/dL (0.3-1.2); VLDL Calculation 12.36 mg/dL (5.00-40.00)
[2024-08-28 13:46] LABS: Urine Creatinine 81.6 mg/dL (39.0-259.0)
== END | disposition home or self-care (01) ==
LOC: LABWHC1 06:57
PROVIDERS: ATTEND Internal Medicine
DX: E10.65 Type 1 diabetes mellitus with hyperglycemia (principal)
CPT/HCPCS: 36415; 80053; 80061; 82043; 82570; 83036